=== PATIENT | female | born 1955 | race Caucasian/White ===

== ENCOUNTER 2017-06-16 03:57 | Inpatient (IN) ==
[2017-06-16] MEDS ORDERED: Ipratropium/Albuterol Neb 3 ML IH ONE (04:01)
[2017-06-16 04:22] LABS: Basophils % 0.2 %; Eosinophils # 0.2 K/mcL (0.0-0.6); Eosinophils % 1.5 %; Hematocrit 40.6 % (35.3-44.9); Hemoglobin 12.3 g/dL (11.5-15.4); Lymphocytes # 2.3 K/mcL (0.6-4.6); Lymphocytes % 17.8 %; Mean Corpuscular HGB Conc 30.3 g/dL (31.6-35.5); Mean Corpuscular Hemoglobin 32.4 pg (28.0-33.3); Mean Corpuscular Volume 106.8 fL (83.0-100.0); Mean Platelet Volume 10.2 fL (9.4-12.4); Monocytes # 1.1 K/mcL (0.0-1.3); Monocytes % 8.5 %; Neutrophils # 9.2 K/mcL (1.6-8.9); Nucleated Red Blood Cells 0.2 /100 WBC (0); Platelet Count 263 K/mcL (140-400); Red Cell Distribution Width 12.9 % (11.5-14.5)
--- NOTE | 2017-06-16 04:27 | Emergency Department Note ---
Disposition Clinical Impression: Respiratory distress, Endotracheally intubated, Acidosis Fever Qualifiers: Fever type: unspecified Qualified Code(s): R50.9 - Fever, unspecified Disposition: Admitted As Inpatient Condition: Fair [facility] Provider[facility] - Forms: ED Satisfaction Letter Time of Disposition: 06:09 General Adult HPI - General Chief complaint: ED Shortness of Breath/Dyspnea Stated complaint: Resp. Distress Time Seen by Provider: 06/16/17 04:00 Source: patient, EMS Mode of arrival: EMS Limitations: physical limitation Nursing Notes Reviewed: Yes Vital Signs Reviewed: Yes - History of Present Illness HPI Narrative: Patient is a 62-year-old female that presents to the emergency department for respiratory distress. Patient was transferred from the [facility] via EMS. Patient presented to the emergency department being bagged by EMS. They stated that she had an apneic spell in transit. [facility] reported that [facility] was having some [facility] distress and felt that she needed to be transferred here to the emergency department. Upon asking the patient if she wished to have a breathing tube placed if necessary she said yes. Upon being asked if she was to have CPR done if her heart were to stop she said yes. It was reported to us by the [facility] that the patient was full code per conversation with family member. - Related Data Allergies Allergy/AdvReac Type Severity Reaction Status Date / Time aspirin Allergy See Verified 06/16/17 04:24 Comments doxycycline Allergy Difficulty Verified 06/16/17 04:24 Breathing Erythromycin Base Allergy See Verified 06/16/17 04:24 Comments Iodinated Contrast- Oral and Allergy Rash Verified 06/16/17 04:24 IV Dye Latex, Natural Rubber Allergy Rash Verified 06/16/17 04:24 moxifloxacin Allergy Difficulty Verified 06/16/17 04:24 Breathing Pork/Porcine Containing Allergy Vomiting Verified 06/16/17 04:24 Products Sulfa (Sulfonamide Allergy Vomiting Verified 06/16/17 04:24 Antibiotics) All systems ED: reviewed and negative except as stated. Limitations: ROS unobtainable due to patients medical condition Respiratory: Reports: dyspnea Physical Exam - General Limitations: no limitations General appearance: alert, in distress - Head Head exam: atraumatic, normocephalic - Eye Eye exam: Present: normal appearance, EOMI - Neck Neck exam: Present: normal inspection, full ROM, trachea midline - Respiratory Respiratory exam: Present: respiratory distress, other (Decreased breath sounds bilaterally) - Cardiovascular Cardiovascular exam: Present: normal rhythm, tachycardia, normal heart sounds, + S1, +S2 - Abdominal Exam Abdominal exam: Present: soft, Non-Tender, normal bowel sounds - Neurological Exam Neurological exam: Present: alert, oriented X3 - Psychiatric Psychiatric exam: Present: normal affect, normal mood - Skin Skin exam: Present: warm, dry, intact Course Vital Signs Temperature 101.0 F H 06/16/17 04:01 Pulse Rate 101 06/16/17 04:01 Respiratory Rate 31 06/16/17 04:01 Blood Pressure 141/67 06/16/17 04:01 O2 Sat by Pulse Oximetry 92 06/16/17 04:01 Temperature 101.0 F H 06/16/17 04:01 Pulse Rate 103 06/16/17 06:05 Respiratory Rate 14 06/16/17 05:56 Blood Pressure 87/60 06/16/17 06:05 O2 Sat by Pulse Oximetry 100 06/16/17 06:05 Oxygen Delivery Oxygen Delivery Ventilator Procedures - Intubation sedative: Etomidate Mg Given: 20 paralytic: Rocuronium Mg Given: 100 Laryngoscope: Angelica ET Tube Size: 7.5 ET Tube Uncuffed: No Tube Secured Depth (cm): 21 Tube Secured Location: lips Tube Placement Confirmation: visualized tube passing through cords, equal breath sounds bilaterally, no breath sounds over epigastrium Patient Tolerated Procedure: well Intubation Complications: none Medical Decision Making - MDM Narrative Medical decision making narrative: Due to the patient presenting with respiratory distress we will obtain a CBC, BMP, troponin, EKG, chest x-ray, lactic acid, ABG, urinalysis and blood cultures to evaluate this patient. The patient was placed on BiPAP upon arrival here in the emergency department. Patient was also given a DuoNeb breathing treatment. Chest x-ray showed no acute process. Shunt elevated white count and a pH of 7.27 with a PCO2 of 93. The patient still had increased work of breathing and seemed to be tiring so the patient was intubated. Respiratory was at bedside, the patient was given fentanyl, etomidate and rocuronium. A 7-1/2 ET tube was passed without complication. The tube was inserted to 21 cm at the lip. There is equal bilateral breath sounds with no breath sounds heard over the epigastric region. There is positive colorimetric change. A post intubation x-ray was ordered. The patient was febrile and tachycardic. The patient will be started on antibiotics and will need to be admitted to the hospital for further evaluation and management. The patient was started on propofol the patient became hypotensive 80s over 50s. The patient was then switched to Precedex. I called and spoke with the hospitalist and they have accepted the patient to their service. The patient be admitted to the hospital at this time for further evaluation and management. The patient will need to be admitted to the ICU due to the patient being intubated and on a ventilator. The postintubation film showed good placement of the endotracheal tube at approximately 3.5 cm above the harjit. - Medical Records Medical records reviewed: Yes I reviewed the patient's medical records. - Lab Data Lab results reviewed: Yes I reviewed the patient's lab results. Result diagrams: 06/16/17 04:05 06/16/17 04:05 Lab Results 06/16/17 06/16/17 06/16/17 Range/Units 04:05 04:05 04:05 WBC 13.0 H (4.3-11.1) K/mcL RBC 3.80 L (3.82-4.97) M/mcL Hgb 12.3 (11.5-15.4) g/dL Hct 40.6 (35.3-44.9) % MCV 106.8 H (83.0-100.0) fL MCH 32.4 (28.0-33.3) pg MCHC 30.3 L (31.6-35.5) g/dL RDW 12.9 (11.5-14.5) % Plt Count 263 (140-400) K/mcL MPV 10.2 (9.4-12.4) fL Immature Gran % 1.0 (0-4) % Seg Neutrophils % 71.0 % Lymphocytes % 17.8 % Monocytes % 8.5 % Eosinophils % 1.5 % Basophils % 0.2 % Neutrophils # 9.2 H (1.6-8.9) K/mcL Lymphocytes # 2.3 (0.6-4.6) K/mcL Monocytes # 1.1 (0.0-1.3) K/mcL Eosinophils # 0.2 (0.0-0.6) K/mcL Basophils # 0.0 (0.0-0.2) K/mcL Nucleated RBCs/100 WBC 0.2 H (0) /100 WBC ABG pH (7.32-7.45) pH Units ABG pCO2 (35-45) mmHg ABG pO2 (85-104) mmHg ABG HCO3 (21-27) mEq/L ABG Total CO2 (20-26) mEq/L ABG O2 Saturation (95-98) % ABG Base Excess (-2 to 3) mEq/L Sodium 145 (136-145) mEq/L Potassium 4.3 (3.5-5.1) mEq/L Chloride 97 L (98-107) mEq/L Carbon Dioxide 45 H* (23-29) mEq/L BUN 6 L (8-23) mg/dL Creatinine 0.62 (0.60-1.20) mg/dL Est GFR ( Amer) > 60 (> 60) Est GFR (Non-Af Amer) > 60 (> 60) BUN/Creatinine Ratio 10 (6-26) Glucose 192 H (70-105) mg/dL Calculated Osmolality 303 H (280-300) Lactic Acid 0.8 (0.5-2.2) mmol/L Calcium 9.3 (8.6-10.3) mg/dL Troponin I (< 0.04) ng/mL B-Natriuretic Peptide (Less than 100) pg/mL Urine Color (Yellow) Urine Clarity (Clear) Urine pH (5.0-8.0) pH Units Ur Specific [place] (1.010-1.025) Urine Protein (Neg-Trace) mg/dL Urine Glucose (UA) (Normal) mg/dL Urine Ketones (Negative) mg/dL Urine Blood (Negative) Urine Nitrite (Negative) Urine Bilirubin (Negative) Urine Urobilinogen (Normal) mg/dL Ur Leukocyte Esterase (Negative) Urine Microscopic RBC (0-3) per hpf Urine Microscopic WBC (0-3) per hpf Ur Squamous Epith Cells (None-Few) per lpf Urine Bacteria (None-Few) per hpf Hyaline Casts (None-Few) per lpf Ur Culture Indicated? (NO) Person Notif of Crit 06/16/17 06/16/17 06/16/17 Range/Units 04:05 04:05 04:21 WBC (4.3-11.1) K/mcL RBC (3.82-4.97) M/mcL Hgb (11.5-15.4) g/dL Hct (35.3-44.9) % MCV (83.0-100.0) fL MCH (28.0-33.3) pg MCHC (31.6-35.5) g/dL RDW (11.5-14.5) % Plt Count (140-400) K/mcL MPV (9.4-12.4) fL Immature Gran % (0-4) % Seg Neutrophils % % Lymphocytes % % Monocytes % % Eosinophils % % Basophils % % Neutrophils # (1.6-8.9) K/mcL Lymphocytes # (0.6-4.6) K/mcL Monocytes # (0.0-1.3) K/mcL Eosinophils # (0.0-0.6) K/mcL Basophils # (0.0-0.2) K/mcL Nucleated RBCs/100 WBC (0) /100 WBC ABG pH 7.27 L (7.32-7.45) pH Units ABG pCO2 93 H* (35-45) mmHg ABG pO2 111 H (85-104) mmHg ABG HCO3 43 H (21-27) mEq/L ABG Total CO2 46 H (20-26) mEq/L ABG O2 Saturation 97 (95-98) % ABG Base Excess 12 H (-2 to 3) mEq/L Sodium (136-145) mEq/L Potassium (3.5-5.1) mEq/L Chloride (98-107) mEq/L Carbon Dioxide (23-29) mEq/L BUN (8-23) mg/dL Creatinine (0.60-1.20) mg/dL Est GFR ( Amer) (> 60) Est GFR (Non-Af Amer) (> 60) BUN/Creatinine Ratio (6-26) Glucose (70-105) mg/dL Calculated Osmolality (280-300) Lactic Acid (0.5-2.2) mmol/L Calcium (8.6-10.3) mg/dL Troponin I 0.03 (< 0.04) ng/mL B-Natriuretic Peptide 298 H (Less than 100) pg/mL Urine Color (Yellow) Urine Clarity (Clear) Urine pH (5.0-8.0) pH Units Ur Specific [place] (1.010-1.025) Urine Protein (Neg-Trace) mg/dL Urine Glucose (UA) (Normal) mg/dL Urine Ketones (Negative) mg/dL Urine Blood (Negative) Urine Nitrite (Negative) Urine Bilirubin (Negative) Urine Urobilinogen (Normal) mg/dL Ur Leukocyte Esterase (Negative) Urine Microscopic RBC (0-3) per hpf Urine Microscopic WBC (0-3) per hpf Ur Squamous Epith Cells (None-Few) per lpf Urine Bacteria (None-Few) per hpf Hyaline Casts (None-Few) per lpf Ur Culture Indicated? (NO) Person Notif Layne ron 06/16/17 Range/Units 04:39 WBC (4.3-11.1) K/mcL RBC (3.82-4.97) M/mcL Hgb (11.5-15.4) g/dL Hct (35.3-44.9) % MCV (83.0-100.0) fL MCH (28.0-33.3) pg MCHC (31.6-35.5) g/dL RDW (11.5-14.5) % Plt Count (140-400) K/mcL MPV (9.4-12.4) fL Immature Gran % (0-4) % Seg Neutrophils % % Lymphocytes % % Monocytes % % Eosinophils % % Basophils % % Neutrophils # (1.6-8.9) K/mcL Lymphocytes # (0.6-4.6) K/mcL Monocytes # (0.0-1.3) K/mcL Eosinophils # (0.0-0.6) K/mcL Basophils # (0.0-0.2) K/mcL Nucleated RBCs/100 WBC (0) /100 WBC ABG pH (7.32-7.45) pH Units ABG pCO2 (35-45) mmHg ABG pO2 (85-104) mmHg ABG HCO3 (21-27) mEq/L ABG Total CO2 (20-26) mEq/L ABG O2 Saturation (95-98) % ABG Base Excess (-2 to 3) mEq/L Sodium (136-145) mEq/L Potassium (3.5-5.1) mEq/L Chloride (98-107) mEq/L Carbon Dioxide (23-29) mEq/L BUN (8-23) mg/dL Creatinine (0.60-1.20) mg/dL Est GFR ( Amer) (> 60) Est GFR (Non-Af Amer) (> 60) BUN/Creatinine Ratio (6-26) Glucose (70-105) mg/dL Calculated Osmolality (280-300) Lactic Acid (0.5-2.2) mmol/L Calcium (8.6-10.3) mg/dL Troponin I (< 0.04) ng/mL B-Natriuretic Peptide (Less than 100) pg/mL Urine Color Yellow (Yellow) Urine Clarity Clear (Clear) Urine pH 6.0 (5.0-8.0) pH Units Ur Specific [place] 1.019 (1.010-1.025) Urine Protein 30 H (Neg-Trace) mg/dL Urine Glucose (UA) Normal (Normal) mg/dL Urine Ketones Negative (Negative) mg/dL Urine Blood Negative (Negative) Urine Nitrite Negative (Negative) Urine Bilirubin Negative (Negative) Urine Urobilinogen Normal (Normal) mg/dL Ur Leukocyte Esterase Negative (Negative) Urine Microscopic RBC 3-5 H (0-3) per hpf Urine Microscopic WBC 0-3 (0-3) per hpf Ur Squamous Epith Cells Many H (None-Few) per lpf Urine Bacteria None Seen (None-Few) per hpf Hyaline Casts Few (None-Few) per lpf Ur Culture Indicated? NO (NO) Person Notif of Crit - Radiology Data Radiology results reviewed: Yes I reviewed the patient's radiology results. Chest X-Ray 06/16/17 05:33 IMPRESSION: Endotracheal tube in appropriate position approximately 3.5 cm above the harjit. No acute process in the chest. D/ / Bessy Lindsay MD / Bessy Lindsay MD Interpreting Provider: Bessy Lindsay MD - EKG Data EKG #1 EKG attestation: Yes I reviewed and interpreted this EKG. EKG results narrative: EKG shows sinus tachycardia at a rate of 102 bpm, OH interval of 173, QRS duration of 82, QTC of 395 with a normal axis. This is compared to previous EKG on 3/5/15 which showed a sinus rhythm at a rate of 77 bpm.
[2017-06-16 04:28] LABS: ABG Base Excess 12 mEq/L (-2 to 3); ABG HCO3 43 mEq/L (21-27); ABG Oxygen Saturation 97 % (95-98); ABG PCO2 93 mmHg (35-45); ABG PH 7.27 pH Units (7.32-7.45); ABG PO2 111 mmHg (85-104); ABG TCO2 46 mEq/L (20-26)
[2017-06-16 04:45] LABS: BUN/Creatinine Ratio 10 (6-26); Blood Urea Nitrogen 6 mg/dL (8-23); Calcium 9.3 mg/dL (8.6-10.3); Carbon Dioxide 45 mEq/L (23-29); Chloride 97 mEq/L (98-107); Glucose 192 mg/dL (70-105); Osmolality,Calculated 303 (280-300); Potassium 4.3 mEq/L (3.5-5.1); Sodium 145 mEq/L (136-145); eGFR For African Americans > 60 (> 60); eGFR For Non-African Americans > 60 (> 60)
[2017-06-16 05:03] LABS: Bilirubin,Urine Negative (Negative); Blood,Urine Negative (Negative); Clarity,Urine Clear (Clear); Color,Urine Yellow (Yellow); Glucose,Urine (UA) Normal (Normal); Ketones,Urine Negative (Negative); Leukocyte Esterase,Urine Negative (Negative); Nitrite,Urine Negative (Negative); Protein,Urine 30 mg/dL (Neg-Trace); Specific Gravity,Urine 1.019 (1.010-1.025); Urobilinogen,Urine Normal (Normal)
[2017-06-16 05:05] LABS: Bacteria,Urine None Seen per hpf (None-Few); Hyaline Casts,Urine Few per lpf (None-Few); Squamous Epithelial Cell,Urine Many per lpf (None-Few); WBC,Urine 0-3 per hpf (0-3)
[2017-06-16] MEDS ORDERED: *HR* FentaNYL (PF) 100 MCG/2 ML VIAL ONE (05:26)
[2017-06-16] MEDS ORDERED: 0.9 % Sodium Chloride 1,000 ML ONE (05:27)
[2017-06-16] MEDS ORDERED: Propofol 500 MG/50 ML INFUS..BTL ONE (05:27)
[2017-06-16] MEDS ORDERED: 0.9 % Sodium Chloride 1,000 ML IVC SCH (05:30)
[2017-06-16] MEDS ORDERED: *HR* Etomidate 20 MG/10 ML AMPUL IVP ONE ×2 (05:35→08:15)
[2017-06-16] MEDS ORDERED: *HR* FentaNYL (PF) 100 MCG/2 ML VIAL IVP ONE (05:35)
[2017-06-16] MEDS ORDERED: *HR* Rocuronium Bromide 50 MG/5 ML VIAL IVP ONE (05:35)
[2017-06-16] MEDS ORDERED: Piperacillin/Tazobactam 3.375 GM in Water for inj. (sterile) 20 ML IVP ONE (05:37)
[2017-06-16] MEDS ORDERED: Vancomycin 1,000 MG in D5% in Water 250 ML IVPB ONE (05:37)
--- NOTE | 2017-06-16 05:45 | Emergency Department Note ---
START Narrative - START START: I examined this patient and my medical decision-making was reviewed with the Resident Physician. I agree with the documented findings, disposition and treatment plan as described except to the extent set forth below. Patient to the ED with difficulty breathing. She is a transfer from the [facility]dc at the [place]. He states she was so difficult breathing and she was confused. They checked an ABG that showed acidosis and hypercapnia so she was transferred here. On arrival she is in respiratory distress. Accessory muscle use. Oxygen saturation the upper 70s to low 80s. She was placed on a BiPAP. She received 3 DuoNeb's. She received Solu-Medrol prior to transfer at the [facility]. Lung sounds are significantly diminished. Plan. The patient did not improve on BiPAP. She still breathing 30 times a minute with accessory muscle use. She is beginning to tire. Patient was agreeable to intubation. He did have a DNR comfort care chart. When patient was asked about this the patient states that she would want CPR and that she was okay with an intubation. She was oriented 3. She was competent. She understood what this meant. The patient was intubated for respiratory failure did not improve with BiPAP. She has a clear chest x-ray, but she does have a fever. Flu was negative. She started on broad-spectrum antibiotic. 40 minutes of critical care exclusive of separately billable procedures.
[2017-06-16] MEDS ORDERED: Naloxone 0.4 MG/ML INJ IVP PRN (05:50)
[2017-06-16] MEDS ORDERED: Lacri-Lube 3.5 GM TUBE BOTH EYES PRN (05:53)
[2017-06-16] MEDS ORDERED: Ringers Solution, Lactated 1,000 ML IVC SCH (06:00)
[2017-06-16] MEDS: MethylPREDNISolone 40 MG/ML VIAL IVP SCH ×3 (06:00→18:12)
[2017-06-16] MEDS ORDERED: Dexmedetomidine HCl 400 MCG/100 ML MLS IVC ONE (06:04)
[2017-06-16] MEDS: Dexmedetomidine HCl 400 MCG/100 ML MLS IVC SCH (06:07)
[2017-06-16] MEDS ORDERED: Dexmedetomidine HCl 400 MCG/100 ML MLS IVC SCH (06:15)
--- NOTE | 2017-06-16 06:15 | Internal Med History&Physical ---
Date of Encounter: 06/16/17 Time of Encounter: 06:11 Assessment and Plan (1) Acute respiratory failure with hypercapnia Current visit: Yes Status: Acute suspect COPD flare as etiology check RVP CXR reviewed with no infiltrates to suggest PNA Now intubated on vent, repeat ABG, post intubated CXR for ETT placement patient is critically ill [facility] (2) COPD exacerbation Current visit: Yes Status: Acute duonebs iv steroids (3) HTN (hypertension) Current visit: Yes Status: Acute normotensive, hold BP med Qualifiers: Hypertension type: essential hypertension Qualified Code(s): I10 - Essential (primary) hypertension (4) CHF (congestive heart failure) Current visit: Yes Status: Acute LVEF reported 30 % watch IVF to avoid volume overload Qualifiers: Congestive heart failure chronicity: chronic Qualified Code(s): I50.9 - Heart failure, unspecified Internal Medicine - H&P: HPI Chief complaint: SOB History of present illness: Patient was intubated and sedated in the ED. Collateral hx from ED staff indicate: Ms. Smith is a 62 year old female who presents from [facility] with SOB. Transferred to [facility] for acute respiratory distress 2/2 COPD exacerbation. Mental status was considered to be alert and she indicated to the ED staff that she would want intubation in lieu of her progressive respiratory compromise. Her [facility] paperwork initially indicated DNRCC but she changed her code status to full code under this morning's circumstance. Initial labs suggest chronic hypercapnia with metabolic compensation She was intubated for impending respiratory failure XR/XR chest 1V portable IMPRESSION: Stable chest x-ray. No acute disease. Past Med Surg Social Fam HX - Past Medical History Medical history: CHF, COPD, GERD, hyperlipidemia, hypertension Psychiatric history: depression - Past Surgical History Surgical History: no surgical history (unable to obtain given sedated/intubated state) - Social History Smoking Status: Unknown if ever smoked Smokeless Tobacco Status: No Alcohol use: none Drug use: none - Additional Family History Additional family history: unable to obtain given sedated/intubated state Internal Medicine - H&P: Meds 3 Allergy/AdvReac Type Severity Reaction Status Date / Time aspirin Allergy See Verified 06/16/17 04:24 Comments doxycycline Allergy Difficulty Verified 06/16/17 04:24 Breathing Erythromycin Base Allergy See Verified 06/16/17 04:24 Comments Iodinated Contrast- Oral and Allergy Rash Verified 06/16/17 04:24 IV Dye Latex, Natural Rubber Allergy Rash Verified 06/16/17 04:24 moxifloxacin Allergy Difficulty Verified 06/16/17 04:24 Breathing Pork/Porcine Containing Allergy Vomiting Verified 06/16/17 04:24 Products Sulfa (Sulfonamide Allergy Vomiting Verified 06/16/17 04:24 Antibiotics) All Systems PM: A 10-system review of systems was performed and is negative for pertinent findings except as documented above in the HPI. Review of systems: Unable to perform given intubated, sedated state - Constitutional Vitals: Temp Pulse Resp BP Pulse Ox 101.0 F H 105 14 110/66 100 06/16/17 04:01 06/16/17 05:56 06/16/17 05:56 06/16/17 05:56 06/16/17 05:56 Exam: General - Intubated, sedated state Psych - Intubated, sedated state Eyes - [place]. Eye lids intact. No scleral icterus Neuro - Intubated, sedated Heart - Sinus. RRR. S1 and S2 present. No added HS/murmurs appreciated. No elevated JVD appreciated. Lung - Adequate air entry b/l, No crackles/wheezes appreciated GI - Soft, non-tender. No hepatosplenomegaly/ascites. BS+ - Roche in-situ Skin - Intact. No rash/petechiae/ecchymosis. Trace b/l LE edema Internal Med - H&P Results - Labs CBC & Chem 7: 06/16/17 04:05 06/16/17 04:05 Labs: Short CBC 06/16/17 Range/Units 04:05 WBC 13.0 H (4.3-11.1) K/mcL Hgb 12.3 (11.5-15.4) g/dL Hct 40.6 (35.3-44.9) % Plt Count 263 (140-400) K/mcL Neutrophils # 9.2 H (1.6-8.9) K/mcL BMP 06/16/17 04:05 Sodium 145 Potassium 4.3 Chloride 97 L Carbon Dioxide 45 H* BUN 6 L Creatinine 0.62 Glucose 192 H Calcium 9.3 Cardiac Enzymes 06/16/17 Range/Units 04:05 Troponin I 0.03 (< 0.04) ng/mL Urine 06/16/17 Range/Units 04:39 Urine Color Yellow (Yellow) Urine Clarity Clear (Clear) Urine pH 6.0 (5.0-8.0) pH Units Ur Specific [place] 1.019 (1.010-1.025) Urine Protein 30 H (Neg-Trace) mg/dL Urine Glucose (UA) Normal (Normal) mg/dL - ABG Interpretation ABG results: 06/16/17 04:21 ABG pH 7.27 L ABG pCO2 93 H* ABG pO2 111 H ABG HCO3 43 H ABG Total CO2 46 H ABG O2 Saturation 97 ABG Base Excess 12 H - Impressions ITS Impressions Chest X-Ray 06/16/17 04:00 IMPRESSION: Stable chest x-ray. No acute disease. D/ / Saúl Hester MD / Saúl Hester MD Interpreting Provider: Saúl Hester MD Chest X-Ray 06/16/17 05:33 IMPRESSION: Endotracheal tube in appropriate position approximately 3.5 cm above the harjit. No acute process in the chest. D/ / Bessy Lindsay MD / Bessy Lindsay MD Interpreting Provider: Bessy Lindsay MD
--- NOTE | 2017-06-16 06:56 | Pulmonology Consult Note ---
<Madhu Conner W - Last Filed: 06/16/17 11:26> Date of Encounter: 06/16/17 Medications and Allergies 3 Allergy/AdvReac Type Severity Reaction Status Date / Time aspirin Allergy See Verified 06/16/17 04:24 Comments doxycycline Allergy Difficulty Verified 06/16/17 04:24 Breathing Erythromycin Base Allergy See Verified 06/16/17 04:24 Comments Iodinated Contrast- Oral and Allergy Rash Verified 06/16/17 04:24 IV Dye Latex, Natural Rubber Allergy Rash Verified 06/16/17 04:24 moxifloxacin Allergy Difficulty Verified 06/16/17 04:24 Breathing Pork/Porcine Containing Allergy Vomiting Verified 06/16/17 04:24 Products Sulfa (Sulfonamide Allergy Vomiting Verified 06/16/17 04:24 Antibiotics) All Systems: A 10-system review of systems was performed and is negative for pertinent findings except as documented above in the HPI. Physical Examination Vital Signs: Vital Signs, Last 4 Hours Temp Pulse Resp BP Pulse Ox 06/16/17 09:41 14 95/69 98 06/16/17 09:00 73 14 78/62 06/16/17 08:02 14 100/60 97 06/16/17 07:05 80 06/16/17 07:00 98 F 80 14 127/69 98 06/16/17 06:47 14 100 06/16/17 06:39 77 14 111/63 100 Ventilator Settings Ventilator Settings: Ventilator Settings, Last 8 Hours Ventilator Mode A/C Ventilator Mode A/C Ventilator Mode A/C Ventilator Mode A/C Ventilator Tidal Volume 400 Setting Ventilator Tidal Volume 400 Setting Ventilator Tidal Volume 400 Setting Ventilator Tidal Volume 400 Setting Ventilator Tidal Volume 400 Setting Ventilator Respiratory Rate 14 Setting Ventilator Respiratory Rate 14 Setting Ventilator Respiratory Rate 14 Setting Ventilator Respiratory Rate 14 Setting Ventilator Respiratory Rate 14 Setting Actual Respiratory Rate 14 Actual Respiratory Rate 14 Actual Respiratory Rate 14 Actual Respiratory Rate 14 Actual Respiratory Rate 14 Positive End Expiratory 5 Pressure Positive End Expiratory 5 Pressure Positive End Expiratory 5 Pressure Positive End Expiratory 5 Pressure Positive End Expiratory 5 Pressure Peak Inspiratory Airway 41 Pressure Peak Inspiratory Airway 44 Pressure Peak Inspiratory Airway 37 Pressure Peak Inspiratory Airway 38 Pressure Peak Inspiratory Airway 37 Pressure Results - Laboratory Findings CBC and BMP: 06/16/17 04:05 06/16/17 04:05 ABG ABG pH 7.37 pH Units (7.32-7.45) 06/16/17 07:42 ABG pCO2 68 mmHg (35-45) H D 06/16/17 07:42 ABG pO2 204 mmHg (85-104) H D 06/16/17 07:42 ABG O2 Saturation 100 % (95-98) H 06/16/17 07:42 Abnormal lab findings: Abnormal lab results WBC 13.0 K/mcL (4.3-11.1) H 06/16/17 04:05 RBC 3.80 M/mcL (3.82-4.97) L 06/16/17 04:05 MCV 106.8 fL (83.0-100.0) H 06/16/17 04:05 MCHC 30.3 g/dL (31.6-35.5) L 06/16/17 04:05 Neutrophils # 9.2 K/mcL (1.6-8.9) H 06/16/17 04:05 Nucleated RBCs/100 WBC 0.2 /100 WBC (0) H 06/16/17 04:05 ABG pCO2 68 mmHg (35-45) H D 06/16/17 07:42 ABG pO2 204 mmHg (85-104) H D 06/16/17 07:42 ABG HCO3 39 mEq/L (21-27) H 06/16/17 07:42 ABG Total CO2 42 mEq/L (20-26) H 06/16/17 07:42 ABG O2 Saturation 100 % (95-98) H 06/16/17 07:42 ABG Base Excess 12 mEq/L (-2 to 3) H 06/16/17 07:42 Chloride 97 mEq/L (98-107) L 06/16/17 04:05 Carbon Dioxide 45 mEq/L (23-29) H* 06/16/17 04:05 BUN 6 mg/dL (8-23) L 06/16/17 04:05 Glucose 192 mg/dL (70-105) H 06/16/17 04:05 POC Glucose 208 (58-89) H 06/16/17 07:05 Calculated Osmolality 303 (280-300) H 06/16/17 04:05 B-Natriuretic Peptide 298 pg/mL (Less than 100) H 06/16/17 04:05 Urine Protein 30 mg/dL (Neg-Trace) H 06/16/17 04:39 Urine Microscopic RBC 3-5 per hpf (0-3) H 06/16/17 04:39 Ur Squamous Epith Cells Many per lpf (None-Few) H 06/16/17 04:39 RSV (PCR) DETECTED (Not Detect) A 06/16/17 08:15 - Clinical Findings Intake & Output: Intake & Output 06/15/17 06/16/17 06/16/17 23:59 07:59 15:59 Weight 61.3 kg Consult Discharge Plan - Plan [facility]errals: [facility] [Primary Care Provider] - - Attending Attestation I examined this patient and my medical decision-making was reviewed with the Resident Physician. I agree with the documented findings, disposition and treatment plan as described except to the extent set forth below. We independently had [id number] contact with the patient I spent 35min of Critical Care time with this patient. It involved decision making of high complexity to assess, manipulate, and support vital organ system failure and/or to prevent further life threatening deterioration of the patient' s condition. The time involved in the performance of separately reportable procedures was not counted toward critical care time. Patient seen and examined at bedside Labs, radiology, chart personally reviewed. Management was reviewed during multidisciplinary critical care rounds. 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 Lactate within normal limits. Has a history of heart failure unclear if this is with preserved her reduced ejection fraction but we closely follow amount of crystalloid infusion given. Her BNP was modestly elevated on admission FEN-GI: Nothing by mouth for now on GI prophylaxis given Renal: Urine output monitored and is acceptable no evidence of acute kidney injury ID: She is on treatment for community acquired pneumonia respiratory infection panel positive for RSV planned to de-escalate antimicrobials and 24 hours if no evidence of coinfection Heme/Onc: DVT prophylaxis given Endo: Glucose Monitored Integ/MSK: Skin Care per routine ICU Nursing Protocol to prevent ulcers. Lines: All lines examined without evidence of infection : Dispo: Remain in ICU for ventilator needs CODE: Full code. Patient had DNR CC from [facility] on admission which was rescinded the time of respiratory decompensation will likely need palliative care consultation for ongoing close of care discussion especially once patient liberated from the Vent <Franki Damian - Last Filed: 06/16/17 12:10> Date of Encounter: 06/16/17 Time of Encounter: 06:56 Assessment and Plan (1) Acute respiratory failure with hypercapnia Current Visit: Yes Status: Acute Patient was admitted from the [facility] due to shortness of breath ABG this morning demonstrates pH 7.37, PCO2 68, PO2 204, HCO3 39 Sedation regimen: Only receiving fentanyl bolused as needed for comfort Patient was alert and able to follow some commands this morning Likely due to COPD exacerbation with suspected pneumonia RSV positive on respiratory infection panel Attempt spontaneous retrial this afternoon to CPAP Continue IV antibiotics, steroids, bronchodilators Patient remains high-risk and we will close monitoring throughout the day. CODE STATUS is full code per patient's wishes upon arrival but was previously DNR CC at the [facility]. (2) COPD exacerbation Current Visit: Yes Status: Acute Chronic severe COPD with known FEV1 roughly 20% Continue duo nebs with IV steroids and start IV antibiotics today See above (3) PNA (pneumonia) Current Visit: Yes Status: Suspected Chronic changes versus new opacity seen in left lower lobe on chest x-ray Mild bump in leukocytosis of 13.0 Afebrile Sent strep and Legionella antigen Blood cultures pending Respiratory infection panel showing RSV positive Plan: Solu-Medrol 40 mg every 6 Dounebs q4 Start azithromycin and ceftriaxone (day 1) Qualifiers: Pneumonia type: due to unspecified organism Laterality: left Lung location: lower lobe of lung Qualified Code(s): J18.1 - Lobar pneumonia, unspecified organism (4) Chronic systolic (congestive) heart failure Current Visit: Yes Status: Acute Left heart cath in 2013 with an EF of 30% No evidence of acute CHF. No lower extremity edema or vascular congestion seen on CXR. Patient takes Lasix 20 mg daily with ARB and beta iron at the halfway. We will hold these due to hypotension. (5) HLD (hyperlipidemia) Current Visit: Yes Status: Chronic History of atorvastatin 40 mg daily. Will hold at this time Qualifiers: Hyperlipidemia type: unspecified Qualified Code(s): E78.5 - Hyperlipidemia , unspecified (6) Anxiety Current Visit: Yes Status: Chronic History of taking hydroxyzine. We will hold this for now (7) Mood disorder Current Visit: Yes Status: Chronic History of taking lamotrigine and mirtazapine. We will hold these medication at this time (8) GERD (gastroesophageal reflux disease) Current Visit: Yes Status: Chronic PPI therapy Qualifiers: Esophagitis presence: without esophagitis Qualified Code(s): K21.9 - Gastro -esophageal reflux disease without esophagitis (9) HTN (hypertension) Current Visit: Yes Status: Chronic Qualifiers: Hypertension type: essential hypertension Qualified Code(s): I10 - Essential (primary) hypertension (10) DVT prophylaxis Current Visit: Yes Status: Acute Lovenox 40 mg subcutaneous History of Present Illness History of present illness: Miss Morrow is a very pleasant 62-year-old female with a past medical history of anemia, chronic systolic heart failure, anxiety, low back pain, GERD, depression, mood disorder, hypertension, hyperlipidemia and severe COPD who presents to the [facility] chief complaint short of breath. Patient is a resident at the [facility]. Around the ED, initial workup demonstrates leukocytosis of 13, normal kidney function, mildly elevated BNP of 298, negative urine and initial ABG demonstrating pH 7.27, PCO2 93, PO2 111 and HCO3 43. CXR demonstrates chronic lung changes in the left lower lobe versus infectious process. Blood cultures were sent and flu swab was negative. Patient was subsequently intubated and started on ventilator support. She was given 1 dose of vancomycin and Zosyn in the ER. She was admitted to the intensive care unit for acute respiratory failure secondary to COPD exacerbation and suspected pneumonia and thus, pulmonary/critical care team was consulted. On evaluation, patient is intubated and responds to stimulation. She is able to follow simple commands. Repeat ABG with pH of 7.37, PCO2 68, PO2 204 and HCO3 39. Ventilator settings are at 14, 400, 60 and 5. Patient appears comfortable on Precedex and was bolused fentanyl as needed. The admitting team had started bronchodilators and steroids. Additional coverage were added with ceftriaxone and azithromycin as well as a respiratory infection panel that was positive for RSV. Patient is than progressively hypotensive this morning has been fluid responsive thus far. Two 500 mL of normal saline bolus and MAP has been above 60 consistently. We will continue to monitor patient closely got the day and offer further interventions as needed. Past Med Surg Social Fam HX - Past Medical History Medical history: CHF, COPD, GERD, hyperlipidemia, hypertension Psychiatric history: depression - Past Surgical History Surgical History: no surgical history (unable to obtain given sedated/intubated state) - Social History Smoking Status: Unknown if ever smoked Smokeless Tobacco Status: No Alcohol use: none Drug use: none ROS unobtainable: due to endotracheal tube All Systems: A 10-system review of systems was performed and is negative for pertinent findings except as documented above in the HPI. Physical Examination Vital Signs: Vital Signs, Last 4 Hours Pulse Resp BP Pulse Ox 06/16/17 06:39 77 14 111/63 100 General appearance: no acute distress Eyes: nonicteric ENT: oropharynx moist (ET tube present) Effort: normal Inspection: normal Auscultation: left: rhonchi, bilateral: wheezes Cardiovascular: regular rate and rhythm Gastrointestinal: normoactive bowel sounds, non-distended Integumentary: normal Extremities: no cyanosis Musculoskeletal: no deformities unable to assess due to mental status Results - Laboratory Findings CBC and BMP: 06/16/17 04:05 06/16/17 04:05 ABG ABG pH 7.27 pH Units (7.32-7.45) L 06/16/17 04:21 ABG pCO2 93 mmHg (35-45) H* 06/16/17 04:21 ABG pO2 111 mmHg (85-104) H 06/16/17 04:21 ABG O2 Saturation 97 % (95-98) 06/16/17 04:21 Abnormal lab findings: Abnormal lab results WBC 13.0 K/mcL (4.3-11.1) H 06/16/17 04:05 RBC 3.80 M/mcL (3.82-4.97) L 06/16/17 04:05 MCV 106.8 fL (83.0-100.0) H 06/16/17 04:05 MCHC 30.3 g/dL (31.6-35.5) L 06/16/17 04:05 Neutrophils # 9.2 K/mcL (1.6-8.9) H 06/16/17 04:05 Nucleated RBCs/100 WBC 0.2 /100 WBC (0) H 06/16/17 04:05 ABG pH 7.27 pH Units (7.32-7.45) L 06/16/17 04:21 ABG pCO2 93 mmHg (35-45) H* 06/16/17 04:21 ABG pO2 111 mmHg (85-104) H 06/16/17 04:21 ABG HCO3 43 mEq/L (21-27) H 06/16/17 04:21 ABG Total CO2 46 mEq/L (20-26) H 06/16/17 04:21 ABG Base Excess 12 mEq/L (-2 to 3) H 06/16/17 04:21 Chloride 97 mEq/L (98-107) L 06/16/17 04:05 Carbon Dioxide 45 mEq/L (23-29) H* 06/16/17 04:05 BUN 6 mg/dL (8-23) L 06/16/17 04:05 Glucose 192 mg/dL (70-105) H 06/16/17 04:05 Calculated Osmolality 303 (280-300) H 06/16/17 04:05 B-Natriuretic Peptide 298 pg/mL (Less than 100) H 06/16/17 04:05 Urine Protein 30 mg/dL (Neg-Trace) H 06/16/17 04:39 Urine Microscopic RBC 3-5 per hpf (0-3) H 06/16/17 04:39 Ur Squamous Epith Cells Many per lpf (None-Few) H 06/16/17 04:39
[2017-06-16 07:46] LABS: ABG Base Excess 12 mEq/L (-2 to 3); ABG HCO3 39 mEq/L (21-27); ABG Oxygen Saturation 100 % (95-98); ABG PCO2 68 mmHg (35-45); ABG PH 7.37 pH Units (7.32-7.45); ABG PO2 204 mmHg (85-104); ABG TCO2 42 mEq/L (20-26); Blood Gas Modality ASSIST CONTROL; Blood Gas PEEP 5 cm H2O; Blood Gas Respiration Rate 14; Blood Gas VT 400 cc
[2017-06-16] MEDS ORDERED: *HR* Rocuronium Bromide 100 MG/10 ML VIAL IVC ONE (08:15)
[2017-06-16] MEDS ORDERED: 0.9 % Sodium Chloride 500 ML ONE (08:49)
[2017-06-16] MEDS ORDERED: 0.9 % Sodium Chloride 500 ML IVC ONE ×3 (08:50→16:53)
[2017-06-16 09:18] LABS: Adenovirus Not Detected (Not Detect); Bordetella Pertussis Not Detected (Not Detect); Chlamydophila pneumoniae Not Detected (Not Detect); Coronavirus 229E Not Detected (Not Detect); Coronavirus HKU1 Not Detected (Not Detect); Coronavirus NL63 Not Detected (Not Detect); Coronavirus OC43 Not Detected (Not Detect); Human Metapneumovirus Not Detected (Not Detect); Human Rhinovirus/Enterovirus Not Detected (Not Detect); Influenza A Subtype 2009 H1 Not Detected (Not Detect); Influenza A Untypeable Not Detected (Not Detect); Influenza B Not Detected (Not Detect); Mycoplasma pneumoniae Not Detected (Not Detect); Parainfluenza Virus 1 Not Detected (Not Detect); Parainfluenza Virus 2 Not Detected (Not Detect); Parainfluenza Virus 3 Not Detected (Not Detect); Parainfluenza Virus 4 Not Detected (Not Detect)
[2017-06-16 09:19] LABS: Respiratory Syncytial Virus ***DETECTED*** (Not Detect)
[2017-06-16] MEDS: Ipratropium/Albuterol Neb 3 ML IH SCH ×3 (09:40→22:57)
[2017-06-16] MEDS: FentaNYL (PF) 1,000 MCG in 0.9 % Sodium Chloride 80 ML IVC SCH (09:58)
[2017-06-16] MEDS: Chlorhexidine Rinse 15 ML MOUTHWASH MM SCH ×2 (11:05→21:14)
[2017-06-16] MEDS: *HR* Enoxaparin 40 MG/0.4 ML SYRINGE SQ SCH (11:06)
[2017-06-16] MEDS: Pantoprazole 40 MG VIAL IVP SCH (11:07)
[2017-06-16] MEDS: Lacri-Lube 3.5 GM TUBE BOTH EYES SCH ×4 (11:08→21:16)
[2017-06-16] MEDS: Docusate Oral Soln 100 MG/10 ML UDC PO SCH ×2 (11:08→21:14)
[2017-06-16] MEDS: Azithromycin 500 MG in D5% in Water 250 ML IVPB SCH (12:55)
[2017-06-16] MEDS: cefTRIAXone 2,000 MG in Water for inj. (sterile) 20 ML 20 ML IVP SCH (12:56)
[2017-06-17] MEDS: Lacri-Lube 3.5 GM TUBE BOTH EYES SCH ×6 (02:38→19:18)
[2017-06-17] MEDS: MethylPREDNISolone 40 MG/ML VIAL IVP SCH ×4 (02:39→19:13)
[2017-06-17] MEDS: Dexmedetomidine HCl 400 MCG/100 ML MLS IVC SCH (03:48)
[2017-06-17] MEDS: Ipratropium/Albuterol Neb 3 ML IH SCH (04:09)
[2017-06-17 04:13] LABS: BUN/Creatinine Ratio 22 (6-26); Blood Urea Nitrogen 12 mg/dL (8-23); Calcium 7.9 mg/dL (8.6-10.3); Carbon Dioxide 31 mEq/L (23-29); Chloride 102 mEq/L (98-107); Glucose 151 mg/dL (70-105); Magnesium 1.1 mg/dL (1.6-2.6); Osmolality,Calculated 295 (280-300); Potassium 4.4 mEq/L (3.5-5.1); Sodium 141 mEq/L (136-145); eGFR For African Americans > 60 (> 60); eGFR For Non-African Americans > 60 (> 60)
[2017-06-17 04:16] LABS: Basophils % 0.2 %; Eosinophils % 0.2 %; Hematocrit 31.5 % (35.3-44.9); Immature Granulocytes % 0.5 % (0-4); Lymphocytes # 0.7 K/mcL (0.6-4.6); Lymphocytes % 6.9 %; Mean Corpuscular HGB Conc 30.5 g/dL (31.6-35.5); Mean Corpuscular Hemoglobin 32.1 pg (28.0-33.3); Mean Corpuscular Volume 105.4 fL (83.0-100.0); Mean Platelet Volume 10.3 fL (9.4-12.4); Monocytes # 0.8 K/mcL (0.0-1.3); Monocytes % 7.7 %; Neutrophils # 8.8 K/mcL (1.6-8.9); Platelet Count 171 K/mcL (140-400); Red Blood Count 2.99 M/mcL (3.82-4.97); Red Cell Distribution Width 12.9 % (11.5-14.5); Segmented Neutrophils % 84.5 %
[2017-06-17 04:21] LABS: Hemoglobin 9.6 g/dL (11.5-15.4)
[2017-06-17] MEDS: *HR* Enoxaparin 40 MG/0.4 ML SYRINGE SQ SCH (06:27)
[2017-06-17] MEDS: Pantoprazole 40 MG VIAL IVP SCH (06:27)
[2017-06-17 06:31] LABS: ABG Base Excess 9 mEq/L (-2 to 3); ABG HCO3 38 mEq/L (21-27); ABG Oxygen Saturation 93 % (95-98); ABG PCO2 82 mmHg (35-45); ABG PH 7.28 pH Units (7.32-7.45); ABG PO2 80 mmHg (85-104); ABG TCO2 41 mEq/L (20-26); Blood Gas Modality ASSIST CONTROL; Blood Gas PEEP 5 cm H2O; Blood Gas Respiration Rate 14; Blood Gas VT 400 cc
[2017-06-17] MEDS ORDERED: Calcium Gluconate 2,000 MG in 0.9 % Sodium Chloride 100 ML IVPB ONE (07:52)
[2017-06-17] MEDS: *HR* LORazepam 2 MG/ML VIAL IVP PRN ×5 (08:47→22:45)
[2017-06-17] MEDS: Chlorhexidine Rinse 15 ML MOUTHWASH MM SCH ×2 (08:53→19:16)
--- NOTE | 2017-06-17 09:19 | Pulmonology Progress Note ---
Date of Encounter: 06/17/17 Time of Encounter: 09:18 Assessment and Plan (1) Acute and chronic respiratory failure ([id number]) Current Visit: Yes Status: Acute Remains on ventilator and that was adjusted to improve respiratory mechanics to DC plus. We will increase respiratory rate for hypercapnia on today's ABG repeat ABG in the morning she is not a candidate for spontaneous breathing trial today because of delirium we will try again tomorrow Qualifiers: Respiratory failure complication: hypoxia and hypercapnia Qualified Code(s) : J96.21 - Acute and chronic respiratory failure with hypoxia; J96.22 - Acute and chronic respiratory failure with hypercapnia; J96.22 - Acute and chronic respiratory failure with hypercapnia; J96.22 - Acute and chronic respiratory failure with hypercapnia (2) Hypotension Current Visit: Yes Status: Acute This is multifactorial including sedation, low intravascular volume and infection. She remains fluid responsive goal map around 60 no evidence of end organ hypoperfusion at this time Qualifiers: Qualified Code(s): I95.9 - Hypotension, unspecified (3) CHF (congestive heart failure) Current Visit: Yes Status: Acute Elevated BNP with a history of the heart failure we are being very judicious of fluid that we are giving her no evidence of overt failure holding antihypertensives because of hypotension Qualifiers: Congestive heart failure chronicity: chronic Qualified Code(s): I50.9 - Heart failure, unspecified (4) Anxiety Current Visit: Yes Status: Chronic Thanks chronic anxiety with suspected delirium continue Precedex as needed with intermittent use of benzodiazepines as she takes this on a chronic basis. We will continue to avoid sensory deprivation focus on sleep cycle spiritism and in general try to avoid STRIPER MACHINE depressants as we are able to (5) PNA (pneumonia) Current Visit: Yes Status: Suspected This is secondary to RSV with possibility of bacterial coinfection and she is being covered possibly bacterial pneumonia with planned to de-escalate//stop tomorrow if no clear evidence of bacterial coinfection Qualifiers: Pneumonia type: due to unspecified organism Laterality: left Lung location: lower lobe of lung Qualified Code(s): J18.1 - Lobar pneumonia, unspecified organism (6) COPD exacerbation Current Visit: Yes Status: Acute She is and given bronchodilators and IV steroids continue to monitor (7) Goals of care, counseling/discussion Current Visit: Yes Status: Acute Patient was DNR CC at [facility] recently this was rescinded upon respiratory distress in the emergency department. I have not been able to contact any next of kin at this time but per nurse report they are supposed becoming into the hospital this may best to speak with them overall prognosis is not good in the long-term given advanced nature of her lung disease complicated by chronic anxiety. Palliative care consultation is also indicated Subjective Principal diagnosis: Respiratory Failure Interval history: Patient's blood pressure had been labile overnight but responded to fluid challenges. She was much more uncomfortable on the ventilator today. Objective PUL Vital signs: Last Vital Signs Temp 97.9 F 06/17/17 07:45 Pulse 58 06/17/17 08:05 Resp 14 06/17/17 08:11 BP 145/60 06/17/17 08:11 Pulse Ox 97 06/17/17 08:11 General appearance: appears uncomfortable Eyes: nonicteric Auscultation: bilateral: diminished breath sounds Extremities: no edema non-focal exam anxious Ventilator Settings Ventilator Settings: Ventilator Settings, Last 8 Hours Ventilator Mode A/C Ventilator Mode A/C Ventilator Mode A/C Ventilator Mode A/C Ventilator Mode A/C Ventilator Mode A/C Ventilator Mode A/C Ventilator Tidal Volume 400 Setting Ventilator Tidal Volume 400 Setting Ventilator Tidal Volume 400 Setting Ventilator Tidal Volume 400 Setting Ventilator Tidal Volume 400 Setting Ventilator Tidal Volume 400 Setting Ventilator Tidal Volume 400 Setting Ventilator Respiratory Rate 14 Setting Ventilator Respiratory Rate 14 Setting Ventilator Respiratory Rate 14 Setting Ventilator Respiratory Rate 14 Setting Ventilator Respiratory Rate 14 Setting Ventilator Respiratory Rate 14 Setting Ventilator Respiratory Rate 14 Setting Actual Respiratory Rate 14 Actual Respiratory Rate 24 Actual Respiratory Rate 14 Actual Respiratory Rate 14 Actual Respiratory Rate 14 Actual Respiratory Rate 14 Positive End Expiratory 5 Pressure Positive End Expiratory 5 Pressure Positive End Expiratory 5 Pressure Positive End Expiratory 5 Pressure Positive End Expiratory 5 Pressure Positive End Expiratory 5 Pressure Positive End Expiratory 5 Pressure Peak Inspiratory Airway 48 Pressure Peak Inspiratory Airway 40 Pressure Peak Inspiratory Airway 40 Pressure Peak Inspiratory Airway 47 Pressure Peak Inspiratory Airway 46 Pressure Peak Inspiratory Airway 41 Pressure Results - Laboratory Findings CBC and BMP: 06/17/17 03:48 06/17/17 03:48 ABG ABG pH 7.28 pH Units (7.32-7.45) L 06/17/17 06:24 ABG pCO2 82 mmHg (35-45) H* 06/17/17 06:24 ABG pO2 80 mmHg (85-104) L 06/17/17 06:24 ABG O2 Saturation 93 % (95-98) L 06/17/17 06:24 Abnormal lab findings: Abnormal lab results RBC 2.99 M/mcL (3.82-4.97) L 06/17/17 03:48 Hgb 9.6 g/dL (11.5-15.4) L D 06/17/17 03:48 Hct 31.5 % (35.3-44.9) L 06/17/17 03:48 MCV 105.4 fL (83.0-100.0) H 06/17/17 03:48 MCHC 30.5 g/dL (31.6-35.5) L 06/17/17 03:48 Nucleated RBCs/100 WBC 0.2 /100 WBC (0) H 06/16/17 04:05 ABG pH 7.28 pH Units (7.32-7.45) L 06/17/17 06:24 ABG pCO2 82 mmHg (35-45) H* 06/17/17 06:24 ABG pO2 80 mmHg (85-104) L 06/17/17 06:24 ABG HCO3 38 mEq/L (21-27) H 06/17/17 06:24 ABG Total CO2 41 mEq/L (20-26) H 06/17/17 06:24 ABG O2 Saturation 93 % (95-98) L 06/17/17 06:24 ABG Base Excess 9 mEq/L (-2 to 3) H 06/17/17 06:24 Carbon Dioxide 31 mEq/L (23-29) H 06/17/17 03:48 Creatinine 0.55 mg/dL (0.60-1.20) L 06/17/17 03:48 Glucose 151 mg/dL (70-105) H 06/17/17 03:48 POC Glucose 145 (58-89) H 06/17/17 00:31 Calcium 7.9 mg/dL (8.6-10.3) L 06/17/17 03:48 Magnesium 1.1 mg/dL (1.6-2.6) L 06/17/17 03:48 B-Natriuretic Peptide 298 pg/mL (Less than 100) H 06/16/17 04:05 Urine Protein 30 mg/dL (Neg-Trace) H 06/16/17 04:39 Urine Microscopic RBC 3-5 per hpf (0-3) H 06/16/17 04:39 Ur Squamous Epith Cells Many per lpf (None-Few) H 06/16/17 04:39 RSV (PCR) DETECTED (Not Detect) A 06/16/17 08:15 - Microbiology Findings Microbiology Findings: Microbiology, Last 48 Hours 06/16/17 11:15 Legionella Antigen - Final Urine,[place] Streptococcus pneumoniae Antigen (M - Final - Clinical Findings Intake & Output: Intake & Output 06/16/17 06/17/17 06/17/17 23:59 07:59 15:59 Intake Total 586 / 586 69 / 69 Output Total 50 / 50 150 / 150 Balance 536 / 536 -81 / -81 Consult Discharge Plan - Plan [facility]errals: [facility] [Primary Care Provider] -
[2017-06-17] MEDS: Docusate Oral Soln 100 MG/10 ML UDC PO SCH ×2 (09:22→19:18)
[2017-06-17] MEDS ORDERED: Albumin Human 5% 25.0 GM/500 ML VIAL ONE (09:25)
[2017-06-17] MEDS: Levalbuterol Neb 0.63 MG/3 ML IH SCH ×3 (10:11→21:15)
[2017-06-17] MEDS: Azithromycin 500 MG in D5% in Water 250 ML IVPB SCH (15:18)
[2017-06-17] MEDS: cefTRIAXone 2,000 MG in Water for inj. (sterile) 20 ML 20 ML IVP SCH (15:21)
[2017-06-17] MEDS: FentaNYL (PF) 1,000 MCG in 0.9 % Sodium Chloride 80 ML IVC SCH ×2 (19:17→22:15)
[2017-06-18] MEDS: MethylPREDNISolone 40 MG/ML VIAL IVP SCH ×4 (00:06→23:33)
[2017-06-18] MEDS: Lacri-Lube 3.5 GM TUBE BOTH EYES SCH ×7 (00:06→23:33)
[2017-06-18] MEDS: *HR* LORazepam 2 MG/ML VIAL IVP PRN (00:38)
[2017-06-18] MEDS: Dexmedetomidine HCl 400 MCG/100 ML MLS IVC SCH ×2 (01:14→18:20)
[2017-06-18] MEDS: Ipratropium/Albuterol Neb 3 ML IH PRN ×2 (01:24→08:30)
[2017-06-18] MEDS: Levalbuterol Neb 0.63 MG/3 ML IH SCH ×4 (03:13→20:07)
[2017-06-18 04:48] LABS: Basophils % 0.1 %; Hematocrit 31.7 % (35.3-44.9); Hemoglobin 9.7 g/dL (11.5-15.4); Immature Granulocytes % 0.8 % (0-4); Lymphocytes # 0.4 K/mcL (0.6-4.6); Lymphocytes % 5.2 %; Mean Corpuscular HGB Conc 30.6 g/dL (31.6-35.5); Mean Corpuscular Hemoglobin 31.9 pg (28.0-33.3); Mean Corpuscular Volume 104.3 fL (83.0-100.0); Mean Platelet Volume 10.3 fL (9.4-12.4); Monocytes # 0.4 K/mcL (0.0-1.3); Monocytes % 4.4 %; Neutrophils # 7.1 K/mcL (1.6-8.9); Nucleated Red Blood Cells 0.4 /100 WBC (0); Platelet Count 172 K/mcL (140-400); Red Blood Count 3.04 M/mcL (3.82-4.97); Segmented Neutrophils % 89.5 %
[2017-06-18] MEDS: Pantoprazole 40 MG VIAL IVP SCH (05:19)
[2017-06-18] MEDS: *HR* Enoxaparin 40 MG/0.4 ML SYRINGE SQ SCH (05:19)
[2017-06-18] MEDS: FentaNYL (PF) 1,000 MCG in 0.9 % Sodium Chloride 80 ML IVC SCH ×2 (05:20→23:39)
[2017-06-18 06:12] LABS: ABG Base Excess 12 mEq/L (-2 to 3); ABG HCO3 40 mEq/L (21-27); ABG Oxygen Saturation 94 % (95-98); ABG PCO2 74 mmHg (35-45); ABG PH 7.34 pH Units (7.32-7.45); ABG PO2 77 mmHg (85-104); ABG TCO2 43 mEq/L (20-26); Blood Gas Modality ASSIST CONTROL; Blood Gas PEEP 5 cm H2O; Blood Gas Respiration Rate 16; Blood Gas VT 400 cc
[2017-06-18] MEDS: Docusate Oral Soln 100 MG/10 ML UDC PO SCH ×2 (08:06→19:52)
[2017-06-18] MEDS: Chlorhexidine Rinse 15 ML MOUTHWASH MM SCH ×2 (08:06→19:52)
[2017-06-18 08:38] LABS: Blood Urea Nitrogen 13 mg/dL (8-23); Calcium 9.1 mg/dL (8.6-10.3); Carbon Dioxide 33 mEq/L (23-29); Chloride 99 mEq/L (98-107); Glucose 170 mg/dL (70-105); Magnesium 2.1 mg/dL (1.6-2.6); Osmolality,Calculated 292 (280-300); Potassium 4.5 mEq/L (3.5-5.1); Sodium 139 mEq/L (136-145)
[2017-06-18 09:24] LABS: BUN/Creatinine Ratio 21 (6-26); eGFR For African Americans > 60 (> 60); eGFR For Non-African Americans > 60 (> 60)
--- NOTE | 2017-06-18 09:39 | Pulmonology Progress Note ---
<AlexVarghese Al - Last Filed: 06/18/17 11:33> Date of Encounter: 06/18/17 Time of Encounter: 09:37 Assessment and Plan (1) Acute and chronic respiratory failure ([id number]) Current Visit: Yes Status: Acute Secondary to RSV pneumonia and COPD exacerbation On ventilator and sedated - switched from propofol to precedex - easily arousable and follows commands Blood culture NGTD Pt was agitated overnight - will give Seroquel - ECG shows no QT prolongation Azithromycin - complete 3 doses Nutrition consult for enteral feedings Patient was previously DNR but switched to Full Code when admitted - palliative consult for goals of care Qualifiers: Respiratory failure complication: hypoxia and hypercapnia Qualified Code(s) : J96.21 - Acute and chronic respiratory failure with hypoxia; J96.22 - Acute and chronic respiratory failure with hypercapnia; J96.22 - Acute and chronic respiratory failure with hypercapnia; J96.22 - Acute and chronic respiratory failure with hypercapnia (2) PNA (pneumonia) Current Visit: Yes Status: Suspected Secondary to RSV - possible bacterial as well Legionella antigen negative Qualifiers: Pneumonia type: due to unspecified organism Laterality: left Lung location: lower lobe of lung Qualified Code(s): J18.1 - Lobar pneumonia, unspecified organism (3) Hypotension Current Visit: Yes Status: Acute Likely related to sedation, low intravascular volume, and infection Urine output -115ml out Will give albumin for pressure support and increase urine output Qualifiers: Hypotension type: unspecified hypotension type Qualified Code(s): I95.9 - Hypotension, unspecified (4) CHF (congestive heart failure) Current Visit: Yes Status: Acute Chronic CHF with no evidence of acute exacerbation - will monitor fluids closely Qualifiers: Congestive heart failure type: unspecified Congestive heart failure chronicity: chronic Qualified Code(s): I50.9 - Heart failure, unspecified (5) COPD exacerbation Current Visit: Yes Status: Acute Continue bronchodilators. Steroids q8h (6) Anxiety Current Visit: Yes Status: Chronic History of anxiety and aggitated during hospitalization Will use Seroquel for sedation (7) DVT prophylaxis Current Visit: Yes Status: Acute Subjective Principal diagnosis: Respiratory Failure Interval history: Pt seen and examined. Easily arousable and follows commands. The pt has been very anxious overnight. Objective PUL Vital signs: Last Vital Signs Temp 97.8 F 06/18/17 08:05 Pulse 101 06/18/17 09:00 Resp 25 06/18/17 09:00 BP 150/77 06/18/17 09:00 Pulse Ox 89 06/18/17 09:00 General appearance: no acute distress Eyes: nonicteric ENT: oropharynx moist Effort: mildly labored Auscultation: bilateral: diminished breath sounds, wheezes Cardiovascular: regular rate and rhythm Gastrointestinal: normoactive bowel sounds Extremities: no cyanosis, no edema non-focal exam, pupils equal and round Ventilator Settings Ventilator Settings: Ventilator Settings, Last 8 Hours Ventilator Mode VC+ Ventilator Mode VC+ Ventilator Mode VC+ Ventilator Mode VC+ Ventilator Mode VC+ Ventilator Mode VC+ Ventilator Mode VC+ Ventilator Mode VC+ Ventilator Mode VC+ Ventilator Tidal Volume 400 Setting Ventilator Tidal Volume 400 Setting Ventilator Tidal Volume 400 Setting Ventilator Tidal Volume 400 Setting Ventilator Tidal Volume 400 Setting Ventilator Tidal Volume 400 Setting Ventilator Tidal Volume 400 Setting Ventilator Tidal Volume 400 Setting Ventilator Tidal Volume 400 Setting Ventilator Respiratory Rate 16 Setting Ventilator Respiratory Rate 16 Setting Ventilator Respiratory Rate 16 Setting Ventilator Respiratory Rate 16 Setting Ventilator Respiratory Rate 16 Setting Ventilator Respiratory Rate 16 Setting Ventilator Respiratory Rate 16 Setting Ventilator Respiratory Rate 16 Setting Ventilator Respiratory Rate 16 Setting Actual Respiratory Rate 23 Actual Respiratory Rate 22 Actual Respiratory Rate 16 Actual Respiratory Rate 16 Actual Respiratory Rate 16 Actual Respiratory Rate 18 Actual Respiratory Rate 18 Actual Respiratory Rate 19 Actual Respiratory Rate 19 Actual Respiratory Rate 16 Positive End Expiratory 5 Pressure Positive End Expiratory 5 Pressure Positive End Expiratory 5 Pressure Positive End Expiratory 5 Pressure Positive End Expiratory 5 Pressure Positive End Expiratory 5 Pressure Positive End Expiratory 5 Pressure Positive End Expiratory 5 Pressure Positive End Expiratory 5 Pressure Positive End Expiratory 5 Pressure Positive End Expiratory 5 Pressure Peak Inspiratory Airway 33 Pressure Peak Inspiratory Airway 38 Pressure Peak Inspiratory Airway 43 Pressure Peak Inspiratory Airway 42 Pressure Peak Inspiratory Airway 39 Pressure Peak Inspiratory Airway 41 Pressure Peak Inspiratory Airway 32 Pressure Peak Inspiratory Airway 40 Pressure Peak Inspiratory Airway 38 Pressure Peak Inspiratory Airway 37 Pressure Results - Laboratory Findings CBC and BMP: 06/18/17 04:38 06/18/17 04:38 ABG ABG pH 7.34 pH Units (7.32-7.45) 06/18/17 06:09 ABG pCO2 74 mmHg (35-45) H* 06/18/17 06:09 ABG pO2 77 mmHg (85-104) L 06/18/17 06:09 ABG O2 Saturation 94 % (95-98) L 06/18/17 06:09 Abnormal lab findings: Abnormal lab results RBC 3.04 M/mcL (3.82-4.97) L 06/18/17 04:38 Hgb 9.7 g/dL (11.5-15.4) L 06/18/17 04:38 Hct 31.7 % (35.3-44.9) L 06/18/17 04:38 MCV 104.3 fL (83.0-100.0) H 06/18/17 04:38 MCHC 30.6 g/dL (31.6-35.5) L 06/18/17 04:38 Lymphocytes # 0.4 K/mcL (0.6-4.6) L 06/18/17 04:38 Nucleated RBCs/100 WBC 0.4 /100 WBC (0) H 06/18/17 04:38 ABG pCO2 74 mmHg (35-45) H* 06/18/17 06:09 ABG pO2 77 mmHg (85-104) L 06/18/17 06:09 ABG HCO3 40 mEq/L (21-27) H 06/18/17 06:09 ABG Total CO2 43 mEq/L (20-26) H 06/18/17 06:09 ABG O2 Saturation 94 % (95-98) L 06/18/17 06:09 ABG Base Excess 12 mEq/L (-2 to 3) H 06/18/17 06:09 Carbon Dioxide 33 mEq/L (23-29) H 06/18/17 04:38 Glucose 170 mg/dL (70-105) H 06/18/17 04:38 POC Glucose 174 (58-89) H 06/18/17 00:13 B-Natriuretic Peptide 298 pg/mL (Less than 100) H 06/16/17 04:05 Urine Protein 30 mg/dL (Neg-Trace) H 06/16/17 04:39 Urine Microscopic RBC 3-5 per hpf (0-3) H 06/16/17 04:39 Ur Squamous Epith Cells Many per lpf (None-Few) H 06/16/17 04:39 RSV (PCR) DETECTED (Not Detect) A 06/16/17 08:15 - Microbiology Findings Microbiology Findings: Microbiology, Last 48 Hours 06/16/17 11:15 Legionella Antigen - Final Urine,Roche Port Streptococcus pneumoniae Antigen (M - Final - Clinical Findings Intake & Output: Intake & Output 06/17/17 06/18/17 06/18/17 23:59 07:59 15:59 Intake Total 370 / 370 110 / 110 Output Total 325 / 325 225 / 225 Balance 45 / 45 -115 / -115 Weight 63.5 kg Consult Discharge Plan - Plan [facility]errals: [facility] [Primary Care Provider[facility] - <Lexis Darling - Last Filed: 06/19/17 08:55> Date of Encounter: 06/19/17 Objective PUL Vital signs: Last Vital Signs Temp 98.1 F 06/18/17 12:11 Pulse 57 06/18/17 18:00 Resp 16 06/18/17 18:00 BP 145/78 06/18/17 18:00 Pulse Ox 99 06/18/17 18:00 Ventilator Settings Ventilator Settings: Ventilator Settings, Last 8 Hours Ventilator Mode VC+ Ventilator Mode VC+ Ventilator Mode VC+ Ventilator Tidal Volume 400 Setting Ventilator Tidal Volume 400 Setting Ventilator Tidal Volume 400 Setting Ventilator Respiratory Rate 16 Setting Ventilator Respiratory Rate 16 Setting Ventilator Respiratory Rate 16 Setting Actual Respiratory Rate 16 Actual Respiratory Rate 15 Actual Respiratory Rate 16 Actual Respiratory Rate 15 Actual Respiratory Rate 15 Actual Respiratory Rate 16 Actual Respiratory Rate 16 Actual Respiratory Rate 16 Actual Respiratory Rate 16 Actual Respiratory Rate 25 Positive End Expiratory 5 Pressure Positive End Expiratory 5 Pressure Positive End Expiratory 5 Pressure Positive End Expiratory 5 Pressure Positive End Expiratory 5 Pressure Positive End Expiratory 5 Pressure Positive End Expiratory 5 Pressure Positive End Expiratory 5 Pressure Positive End Expiratory 5 Pressure Positive End Expiratory 5 Pressure Peak Inspiratory Airway 42 Pressure Peak Inspiratory Airway 37 Pressure Peak Inspiratory Airway 35 Pressure Peak Inspiratory Airway 31 Pressure Results - Laboratory Findings CBC and BMP: 06/19/17 06:01 06/19/17 06:01 ABG ABG pH 7.34 pH Units (7.32-7.45) 06/18/17 06:09 ABG pCO2 74 mmHg (35-45) H* 06/18/17 06:09 ABG pO2 77 mmHg (85-104) L 06/18/17 06:09 ABG O2 Saturation 94 % (95-98) L 06/18/17 06:09 Abnormal lab findings: Abnormal lab results RBC 3.04 M/mcL (3.82-4.97) L 06/18/17 04:38 Hgb 9.7 g/dL (11.5-15.4) L 06/18/17 04:38 Hct 31.7 % (35.3-44.9) L 06/18/17 04:38 MCV 104.3 fL (83.0-100.0) H 06/18/17 04:38 MCHC 30.6 g/dL (31.6-35.5) L 06/18/17 04:38 Lymphocytes # 0.4 K/mcL (0.6-4.6) L 06/18/17 04:38 Nucleated RBCs/100 WBC 0.4 /100 WBC (0) H 06/18/17 04:38 ABG pCO2 74 mmHg (35-45) H* 06/18/17 06:09 ABG pO2 77 mmHg (85-104) L 06/18/17 06:09 ABG HCO3 40 mEq/L (21-27) H 06/18/17 06:09 ABG Total CO2 43 mEq/L (20-26) H 06/18/17 06:09 ABG O2 Saturation 94 % (95-98) L 06/18/17 06:09 ABG Base Excess 12 mEq/L (-2 to 3) H 06/18/17 06:09 Carbon Dioxide 33 mEq/L (23-29) H 06/18/17 04:38 Glucose 170 mg/dL (70-105) H 06/18/17 04:38 POC Glucose 142 (58-89) H 06/18/17 18:22 B-Natriuretic Peptide 298 pg/mL (Less than 100) H 06/16/17 04:05 Urine Protein 30 mg/dL (Neg-Trace) H 06/16/17 04:39 Urine Microscopic RBC 3-5 per hpf (0-3) H 06/16/17 04:39 Ur Squamous Epith Cells Many per lpf (None-Few) H 06/16/17 04:39 RSV (PCR) DETECTED (Not Detect) A 06/16/17 08:15 - Microbiology Findings Microbiology Findings: Microbiology, Last 48 Hours 06/16/17 11:15 Legionella Antigen - Final Urine,Roche Port Streptococcus pneumoniae Antigen (M - Final - Clinical Findings Intake & Output: Intake & Output 06/18/17 06/18/17 06/18/17 07:59 15:59 23:59 Intake Total 110 / 110 500 / 500 90 / 90 Output Total 225 / 225 100 / 100 50 / 50 Balance -115 / -115 400 / 400 40 / 40 Weight 63.5 kg - Attending Attestation I saw and evaluated this patient and my medical decision-making was reviewed with the Resident Physician. I agree with the documented findings, disposition and treatment plan as described except to the extent set forth below. We independently had [id number] contact with the patient I spent of 35 minutes of Critical Care time with this patient. It involved decision making of high complexity to assess, manipulate, and support vital organ system failure and/or to prevent further life threatening deterioration of the patient's condition. The time involved in the performance of separately reportable procedures was not counted toward critical care time. Patient seen and examined at bedside Labs, radiology, chart personally reviewed. COMPUTER AIDED DESIGN TECHNICIAN:Patient looks agitated follows commands appears agitated on ventilator intubated and sedated will transition to precedex , fentanyl will start on antipsychotics because of underlying anxiety it will be a difficult to extubate as it will be difficult to transition to BIPAP Pulm:Acute on chronic respiratory failure secondary to COPD Exacerbation , Viral pneumonia complicated by fluid overload will hold off diuresis because of borderline blood pressures . To complete the course of Azithromycin , No growth in cultures till date . Tidal volume and RR was adjusted Cards:Blood pressure is borderline secondary to sedation vs volume depletion will continue with prn colloid resuscitation FEN-GI:Tube ffeds Renal:Labs reviewed and UOP ID: Cultures are negative till date to descalate antibiotics Heme/Onc:Labs reviewed Endo: Glucose Monitored Integ/MSK: Skin Care per routine ICU Nursing Protocol to prevent ulcers. Lines: All lines examined without evidence of infection : Dispo: Critically ill CODE: Full code Palliative consult appreciated spoke with Sister and Brother
[2017-06-18] MEDS: Insulin LISPRO 300 UNITS/3 ML VIAL SQ SCH ×3 (10:17→18:22)
[2017-06-18] MEDS: cefTRIAXone 2,000 MG in Water for inj. (sterile) 20 ML 20 ML IVP SCH (10:20)
[2017-06-18] MEDS: Azithromycin 500 MG in D5% in Water 250 ML IVPB SCH (10:21)
--- NOTE | 2017-06-18 13:57 | Palliative - Consult Note ---
Date of Encounter: 06/18/17 Time of Encounter: 13:55 - Assessment and Plan (1) Dyspnea Current Visit: Yes Status: Acute Assessment and plan: Patient remains sedated on vent. Receiving atb/steroids/bronchodilators. Monitor Qualifiers: Dyspnea type: unspecified Qualified Code(s): R06.00 - Dyspnea, unspecified (2) Goals of care, counseling/discussion Current Visit: Yes Status: Acute Assessment and plan: Patient sedated - did open yes and shake head yes for me once, but became very anxious and then closed eyes and appeared to drift back to sleep. Met with sister Irma (POA) and brother Moiz (alternate POA). Discussed goals of care and code status, that document that was transferred from DC stated she was DNRCC. Communicated with sister Irma via writing as she is deaf and had difficulty reading my lips. They state that she had rescinded her DNR, but had not revised the documents previously completed at the DC. Brother Moiz, stated he was getting frustrated with continued questioning regarding code status, as they had told [facility], and the DC that she had changed her mind. This information appears in alignment with what patient communicated before she was intubated. Code status remains FULL. Discussed that with her anxiety, weaning trials may be challenging, and if they knew pt desire if she were unable to wean from vent, - they both stated they do not believe she would want tracheostomy and alf vent support. Also discussed that with her COPD , at some point, pt lungs do fail and can be a terminal diagnosis. They verbalized understanding. Prior to hospitalizations, pt lived with sister Irma. She has oxygen and nebulizer at home. During this meeting, brother inquired about bipap. Discussed that once she is extubated, she could have evaluation for need of bipap on discharge. Her Family lives in [facility], and communicated that they could not be here everyday, but did state could be contacted by phone. Irma's phone linked up with some type of communication device. Discussed that after a few more days of treatment - would possibly need to meet again later in the week. (Sun/). I provided them my telephone information as well. Irma ROLLINS(sister)- [phone] Moiz Smith (brother) alternate POA- [phone] Interpretive services that Irma utilized for home communication - [employer], [phone] If patient does successfully wean off ventilator, we will discuss revising her advanced directives and communicate this to the DC. Will continue to follow clinical course . (3) Acute respiratory failure with hypercapnia Current Visit: Yes Status: Acute (4) COPD exacerbation Current Visit: Yes Status: Acute Palliative-CN HPI - Data of Consult Consult date: 06/18/17 Requesting Physician: Kolby Beltrán MD Primary Care Provider: PCP DC - Consult Narrative History of present illness: Ms. Smith is a 62 year old female with a past medical history of anemia, chronic systolic heart failure, anxiety, low back pain, GERD, depression, mood disorder, hypertension, hyperlipidemia and severe COPD who presents to the [facility] chief complaint short of breath. Patient's brother, Moiz and sister Irma are here at hospital providing information. Brother states she was transferred from [facility] to the DC, and was doing very well on nasal cannula until last Sunday, when she developed severe shortness of breath and was transferred here. She was admitted to the intensive care unit for acute respiratory failure secondary to COPD exacerbation and suspected pneumonia. She also testing + for RSV. Upon my visit, pt is sedated and ventilated. Apparently, yesterday she was able to follow commands and communicate with writing, but sedation was titrated r/to anxiety. She currently awakens periodically, but did not follow commands for me. She appears very anxious when awake. She remains on IV antibiotic/ steroids. Initially she was hypotensive on arrival to ICU, but responded to boluses. O CC: Kolby Beltrán MD Past Med Surg Social Fam HX - Past Medical History Medical history: CHF, COPD, GERD, hyperlipidemia, hypertension Psychiatric history: depression - Past Surgical History Surgical History: no surgical history (unable to obtain given sedated/intubated state) - Social History Smoking Status: Unknown if ever smoked Smokeless Tobacco Status: No Alcohol use: none Drug use: none Medications and Allergies Acetaminophen [Tylenol] 650 mg PO Q6HR PRN MDD 3000MG 06/17/17 [History] Ascorbic Acid [Vitamin C] 250 mg PO DAILY 06/17/17 [History] Atorvastatin [Lipitor] 40 mg PO HS 06/17/17 [History] Bisacodyl [Dulcolax] 10 mg RC DAILY PRN 06/17/17 [History] Budesonide/Formoterol 160/4.5 [Symbicort 160/4.5] 2 puff IH BIDR 06/17/17 [ History] Buspirone HCl [Buspar] 7.5 mg PO BID 06/17/17 [History] Carvedilol 12.5 mg PO QPM 06/17/17 [History] Docusate Sodium [Dok] 100 mg PO BID 06/17/17 [History] Ferrous Sulfate [Iron] 325 mg PO DAILY 06/17/17 [History] Garlic Extract [Garlipure] 600 mg PO DAILY 06/17/17 [History] Ginkgo Biloba 40 mg PO DAILY 06/17/17 [History] Insulin LISPRO [HumaLOG] 2 - 12 units SQ TIDWM PRN 06/17/17 [History] Ipratropium/Albuterol Neb [Duoneb] 3 ml IH Q4H PRN 06/17/17 [History] Levalbuterol Neb [Xopenex Neb] 1.25 mg IH Q4H 06/17/17 [History] Levalbuterol [Xopenex] 2 puff IH 1800 06/17/17 [History] Losartan [Cozaar] 25 mg PO DAILY 06/17/17 [History] Milk Thistle 150 mg PO DAILY 06/17/17 [History] Mirtazapine [Remeron] 45 mg PO HS 06/17/17 [History] Mv-Mn/FA/Vit K/Lycop/Lut/Coq10 [Daily Multivitamin Capsule] 1 tab PO DAILY 06/17 [History] [place]-3/Dha/Epa/Fish Oil [Fish Oil 1,000 mg Softgel] 1 tab PO DAILY 06/17/17 [ History] OxyCODONE Immed Rel [Roxicodone 5 MG] 5 mg PO Q6H PRN 06/17/17 [History] Pantoprazole Sodium 40 mg PO DAILY 06/17/17 [History] Potassium Chloride [Klor-Con 10] 10 meq PO DAILY 06/17/17 [History] hydrOXYzine HCl [Hydroxyzine HCl] 25 mg PO TID PRN 06/17/17 [History] lamoTRIgine [Lamictal] 25 mg PO HS 06/17/17 [History] lamoTRIgine [Lamictal] 25 mg PO Q48H PRN 06/17/17 [History] 3 Allergy/AdvReac Type Severity Reaction Status Date / Time aspirin Allergy See Verified 06/17/17 12:27 Comments doxycycline Allergy Difficulty Verified 06/17/17 12:27 Breathing Erythromycin Base Allergy See Verified 06/17/17 12:27 Comments Iodinated Contrast- Oral and Allergy Rash Verified 06/17/17 12:27 IV Dye Latex, Natural Rubber Allergy Rash Verified 06/17/17 12:27 moxifloxacin Allergy Difficulty Verified 06/17/17 12:27 Breathing Pork/Porcine Containing Allergy Vomiting Verified 06/17/17 12:27 Products Sulfa (Sulfonamide Allergy Vomiting Verified 06/17/17 12:27 Antibiotics) ROS unobtainable: due to endotracheal tube, due to mental status Palliative Care-Exam - Constitutional Vitals: Temp Pulse Resp BP Pulse Ox 98.1 F 55 16 160/79 98 06/18/17 12:11 06/18/17 13:00 06/18/17 13:00 06/18/17 13:00 06/18/17 13:00 General appearance: Present: no acute distress - Head Head Exam: Present: normal inspection, normocephalic - Eye Eye exam: Present: normal appearance - Respiratory Respiratory exam: Present: decreased breath sounds Additional comments: Remains on vent - Cardiovascular Cardiovascular exam: Present: +S1, +S2 - GI/Abdominal Exam GI/Abdominal exam: Present: normal bowel sounds, soft - Catheter Type: Urethral (Roche) - Extremities Exam Extremities exam: Present: normal capillary refill, normal inspection - Neurological Exam Additional comments: Sedated on vent - Skin Skin exam: Present: dry, pallor, warm Internal Medicine - CN: Reslt - Labs CBC & Chem 7: 06/18/17 04:38 06/18/17 04:38 Labs: Short CBC 06/18/17 Range/Units 04:38 WBC 8.0 (4.3-11.1) K/mcL Hgb 9.7 L (11.5-15.4) g/dL Hct 31.7 L (35.3-44.9) % Plt Count 172 (140-400) K/mcL Neutrophils # 7.1 (1.6-8.9) K/mcL BMP 06/18/17 04:38 Sodium 139 Potassium 4.5 Chloride 99 Carbon Dioxide 33 H BUN 13 Creatinine 0.63 Glucose 170 H Calcium 9.1 - ABG Interpretation ABG results: ABG ABG pH 7.34 pH Units (7.32-7.45) 06/18/17 06:09 ABG pCO2 74 mmHg (35-45) H* 06/18/17 06:09 ABG pO2 77 mmHg (85-104) L 06/18/17 06:09 ABG O2 Saturation 94 % (95-98) L 06/18/17 06:09 Consult Discharge Plan - Plan [facility]errals: [facility] [Primary Care Provider] - Palliative Quality Palliative Quality: Screen for Code Status: Yes, Screen for Goals of Care: Yes, Screen for Pain: Yes, If Pain Regimen Started, Initiate Bowel Regimen: NA, Screen for Nausea/Vomitting: Yes
[2017-06-18] MEDS ORDERED: *HR* Propofol 500 MG/50 ML BOTTLE IVP ONE (20:22)
[2017-06-19] MEDS: Levalbuterol Neb 0.63 MG/3 ML IH SCH ×3 (00:24→10:49)
[2017-06-19] MEDS: Lacri-Lube 3.5 GM TUBE BOTH EYES SCH ×6 (03:25→23:35)
[2017-06-19] MEDS: Pantoprazole 40 MG VIAL IVP SCH (05:40)
[2017-06-19] MEDS: *HR* Enoxaparin 40 MG/0.4 ML SYRINGE SQ SCH (05:40)
[2017-06-19 05:47] LABS: ABG Base Excess 9 mEq/L (-2 to 3); ABG HCO3 39 mEq/L (21-27); ABG Oxygen Saturation 92 % (95-98); ABG PCO2 95 mmHg (35-45); ABG PH 7.22 pH Units (7.32-7.45); ABG PO2 81 mmHg (85-104); ABG TCO2 42 mEq/L (20-26); Blood Gas Modality VC; Blood Gas PEEP 5 cm H2O; Blood Gas Respiration Rate 16; Blood Gas VT 400 cc
[2017-06-19 06:28] LABS: BUN/Creatinine Ratio 35 (6-26); Blood Urea Nitrogen 22 mg/dL (8-23); Calcium 9.3 mg/dL (8.6-10.3); Carbon Dioxide 35 mEq/L (23-29); Chloride 100 mEq/L (98-107); Glucose 202 mg/dL (70-105); Magnesium 2.2 mg/dL (1.6-2.6); Osmolality,Calculated 299 (280-300); Potassium 4.6 mEq/L (3.5-5.1); Sodium 140 mEq/L (136-145); eGFR For African Americans > 60 (> 60); eGFR For Non-African Americans > 60 (> 60)
[2017-06-19 06:35] LABS: Basophils % 0.2 %; Hematocrit 31.5 % (35.3-44.9); Hemoglobin 9.6 g/dL (11.5-15.4); Immature Granulocytes % 1.9 % (0-4); Lymphocytes # 0.4 K/mcL (0.6-4.6); Lymphocytes % 4.7 %; Mean Corpuscular HGB Conc 30.5 g/dL (31.6-35.5); Mean Corpuscular Hemoglobin 32.1 pg (28.0-33.3); Mean Corpuscular Volume 105.4 fL (83.0-100.0); Mean Platelet Volume 10.6 fL (9.4-12.4); Monocytes # 0.6 K/mcL (0.0-1.3); Monocytes % 6.8 %; Neutrophils # 7.2 K/mcL (1.6-8.9); Platelet Count 223 K/mcL (140-400); Red Blood Count 2.99 M/mcL (3.82-4.97); Red Cell Distribution Width 13.3 % (11.5-14.5); Segmented Neutrophils % 86.4 %
[2017-06-19] MEDS ORDERED: Ipratropium/Albuterol Neb 3 ML IH PRN (07:53)
[2017-06-19] MEDS: MethylPREDNISolone 40 MG/ML VIAL IVP SCH ×3 (08:10→23:31)
[2017-06-19] MEDS: Docusate Oral Soln 100 MG/10 ML UDC PO SCH (08:10)
[2017-06-19] MEDS: Chlorhexidine Rinse 15 ML MOUTHWASH MM SCH ×2 (08:10→20:50)
[2017-06-19] MEDS: Insulin LISPRO 300 UNITS/3 ML VIAL SQ SCH ×5 (08:24→23:35)
[2017-06-19] MEDS ORDERED: Docusate Oral Soln 100 MG/10 ML UDC PO PRN (11:11)
[2017-06-19] MEDS: Levalbuterol Neb 1.25 MG/3 ML IH PRN ×4 (11:22→23:22)
[2017-06-19] MEDS: Ipratropium/Albuterol Neb 3 ML IH SCH ×3 (11:25→23:22)
--- NOTE | 2017-06-19 12:02 | Event Note ---
Date of Encounter: 06/19/17 Time of Encounter: 12:00 Spoke with brother Moiz, as well as Sister Irma through interpretive services. Updated on current clinical status. Irma plans on visiting tomorrow around 1100 and will meet with her then.
[2017-06-19] MEDS: cefTRIAXone 2,000 MG in Water for inj. (sterile) 20 ML 20 ML IVP SCH (12:28)
--- NOTE | 2017-06-19 13:44 | Pulmonology Progress Note ---
Addendum entered and electronically signed by Varghese Johnson DO 06/19/17 14: 05: Stage 1 pressure ulcer on right buttock - present since admission. Continue routine care Original Note: <Varghese Johnson - Last Filed: 06/19/17 13:41> Date of Encounter: 06/19/17 Time of Encounter: 13:41 Assessment and Plan (1) Acute and chronic respiratory failure ([id number]) Current Visit: Yes Status: Acute Secondary to RSV pneumonia and COPD exacerbation On ventilator and sedated - switched back to propofol - easily arousable and follows commands Blood culture NGTD Pt continues to have periods of agitation and anxiety - will give Seroquel BID Azithromycin - completed 3 doses Nutrition consult for enteral feedings Patient was previously DNR but switched to Full Code when admitted - palliative following for goals of care and confirmed that pt is and has been Full Code Schedule duonebs q4h and levalbuterol q2h PRN Qualifiers: Respiratory failure complication: hypoxia and hypercapnia Qualified Code(s) : J96.21 - Acute and chronic respiratory failure with hypoxia; J96.22 - Acute and chronic respiratory failure with hypercapnia; J96.22 - Acute and chronic respiratory failure with hypercapnia; J96.22 - Acute and chronic respiratory failure with hypercapnia (2) PNA (pneumonia) Current Visit: Yes Status: Suspected Secondary to RSV - possible bacterial as well Legionella antigen negative Qualifiers: Pneumonia type: due to unspecified organism Laterality: left Lung location: lower lobe of lung Qualified Code(s): J18.1 - Lobar pneumonia, unspecified organism (3) Hypotension Current Visit: Yes Status: Acute Likely related to sedation, low intravascular volume, and infection Qualifiers: Hypotension type: unspecified hypotension type Qualified Code(s): I95.9 - Hypotension, unspecified (4) CHF (congestive heart failure) Current Visit: Yes Status: Acute Chronic CHF with no evidence of acute exacerbation - will monitor fluids closely Qualifiers: Congestive heart failure type: unspecified Congestive heart failure chronicity: chronic Qualified Code(s): I50.9 - Heart failure, unspecified (5) COPD exacerbation Current Visit: Yes Status: Acute Continue bronchodilators. Steroids q8h (6) Anxiety Current Visit: Yes Status: Chronic History of anxiety and agitated during hospitalization Will use Seroquel for sedation (7) DVT prophylaxis Current Visit: Yes Status: Acute Subjective Principal diagnosis: Respiratory Failure Interval history: Pt seen and examined. Easily arousable and follows commands. She continues to have periods of increased anxiety. Objective PUL Vital signs: Last Vital Signs Temp 97.8 F 06/19/17 11:31 Pulse 112 06/19/17 11:00 Resp 20 06/19/17 13:00 BP 107/76 06/19/17 11:00 Pulse Ox 97 06/19/17 13:00 General appearance: no acute distress Eyes: nonicteric ENT: oropharynx moist Auscultation: bilateral: wheezes, rhonchi Cardiovascular: regular rate and rhythm Gastrointestinal: normoactive bowel sounds Integumentary: normal Extremities: no cyanosis, no edema unable to assess due to mental status Ventilator Settings Ventilator Settings: Ventilator Settings, Last 8 Hours Ventilator Mode VC+ Ventilator Mode VC+ Ventilator Mode VC+ Ventilator Mode VC+ Ventilator Mode VC+ Ventilator Mode VC+ Ventilator Tidal Volume 400 Setting Ventilator Tidal Volume 400 Setting Ventilator Tidal Volume 400 Setting Ventilator Tidal Volume 400 Setting Ventilator Tidal Volume 400 Setting Ventilator Tidal Volume 400 Setting Ventilator Respiratory Rate 20 Setting Ventilator Respiratory Rate 20 Setting Ventilator Respiratory Rate 20 Setting Ventilator Respiratory Rate 20 Setting Ventilator Respiratory Rate 16 Setting Ventilator Respiratory Rate 16 Setting Actual Respiratory Rate 20 Actual Respiratory Rate 20 Actual Respiratory Rate 20 Actual Respiratory Rate 16 Actual Respiratory Rate 20 Actual Respiratory Rate 12 Actual Respiratory Rate 20 Actual Respiratory Rate 20 Actual Respiratory Rate 16 Actual Respiratory Rate 19 Actual Respiratory Rate 18 Positive End Expiratory 5 Pressure Positive End Expiratory 5 Pressure Positive End Expiratory 5 Pressure Positive End Expiratory 5 Pressure Positive End Expiratory 5 Pressure Positive End Expiratory 5 Pressure Positive End Expiratory 5 Pressure Positive End Expiratory 5 Pressure Positive End Expiratory 5 Pressure Positive End Expiratory 5 Pressure Positive End Expiratory 5 Pressure Peak Inspiratory Airway 41 Pressure Peak Inspiratory Airway 44 Pressure Peak Inspiratory Airway 47 Pressure Peak Inspiratory Airway 48 Pressure Peak Inspiratory Airway 48 Pressure Peak Inspiratory Airway 46 Pressure Peak Inspiratory Airway 45 Pressure Peak Inspiratory Airway 45 Pressure Peak Inspiratory Airway 540 Pressure Peak Inspiratory Airway 42 Pressure Peak Inspiratory Airway 45 Pressure Results - Laboratory Findings CBC and BMP: 06/19/17 06:01 06/19/17 06:01 ABG ABG pH 7.22 pH Units (7.32-7.45) L 06/19/17 05:43 ABG pCO2 95 mmHg (35-45) H* 06/19/17 05:43 ABG pO2 81 mmHg (85-104) L 06/19/17 05:43 ABG O2 Saturation 92 % (95-98) L 06/19/17 05:43 Abnormal lab findings: Abnormal lab results RBC 2.99 M/mcL (3.82-4.97) L 06/19/17 06:01 Hgb 9.6 g/dL (11.5-15.4) L 06/19/17 06:01 Hct 31.5 % (35.3-44.9) L 06/19/17 06:01 MCV 105.4 fL (83.0-100.0) H 06/19/17 06:01 MCHC 30.5 g/dL (31.6-35.5) L 06/19/17 06:01 Lymphocytes # 0.4 K/mcL (0.6-4.6) L 06/19/17 06:01 Nucleated RBCs/100 WBC 1.0 /100 WBC (0) H 06/19/17 06:01 ABG pH 7.22 pH Units (7.32-7.45) L 06/19/17 05:43 ABG pCO2 95 mmHg (35-45) H* 06/19/17 05:43 ABG pO2 81 mmHg (85-104) L 06/19/17 05:43 ABG HCO3 39 mEq/L (21-27) H 06/19/17 05:43 ABG Total CO2 42 mEq/L (20-26) H 06/19/17 05:43 ABG O2 Saturation 92 % (95-98) L 06/19/17 05:43 ABG Base Excess 9 mEq/L (-2 to 3) H 06/19/17 05:43 Carbon Dioxide 35 mEq/L (23-29) H 06/19/17 06:01 BUN/Creatinine Ratio 35 (6-26) H 06/19/17 06:01 Glucose 202 mg/dL (70-105) H 06/19/17 06:01 POC Glucose 241 (58-89) H 06/19/17 11:17 B-Natriuretic Peptide 298 pg/mL (Less than 100) H 06/16/17 04:05 Urine Protein 30 mg/dL (Neg-Trace) H 06/16/17 04:39 Urine Microscopic RBC 3-5 per hpf (0-3) H 06/16/17 04:39 Ur Squamous Epith Cells Many per lpf (None-Few) H 06/16/17 04:39 RSV (PCR) DETECTED (Not Detect) A 06/16/17 08:15 - Clinical Findings Intake & Output: Intake & Output 06/18/17 06/19/17 06/19/17 23:59 07:59 15:59 Intake Total 385 / 385 57 / 57 0 / 0 Output Total 125 / 125 100 / 100 100 / 100 Balance 260 / 260 -43 / -43 -100 / -100 Weight 65.01 kg Consult Discharge Plan - Plan Referrals: [facility]Primary Care Provider[facility] - <Lexis Darling S - Last Filed: 06/20/17 06:09> Date of Encounter: 06/20/17 Objective PUL Vital signs: Last Vital Signs Temp 97.9 F 06/20/17 04:00 Pulse 90 06/20/17 06:00 Resp 20 06/20/17 06:00 BP 94/57 06/20/17 06:00 Pulse Ox 98 06/20/17 06:00 Ventilator Settings Ventilator Settings: Ventilator Settings, Last 8 Hours Ventilator Mode VC+ Ventilator Mode VC+ Ventilator Mode VC+ Ventilator Mode VC+ Ventilator Mode VC+ Ventilator Mode VC+ Ventilator Tidal Volume 450 Setting Ventilator Tidal Volume 450 Setting Ventilator Tidal Volume 450 Setting Ventilator Tidal Volume 450 Setting Ventilator Tidal Volume 450 Setting Ventilator Tidal Volume 450 Setting Ventilator Respiratory Rate 20 Setting Ventilator Respiratory Rate 20 Setting Ventilator Respiratory Rate 20 Setting Ventilator Respiratory Rate 20 Setting Ventilator Respiratory Rate 20 Setting Ventilator Respiratory Rate 20 Setting Actual Respiratory Rate 20 Actual Respiratory Rate 20 Actual Respiratory Rate 20 Positive End Expiratory 5 Pressure Positive End Expiratory 5 Pressure Positive End Expiratory 5 Pressure Positive End Expiratory 5 Pressure Positive End Expiratory 5 Pressure Positive End Expiratory 5 Pressure Peak Inspiratory Airway 45 Pressure Peak Inspiratory Airway 47 Pressure Peak Inspiratory Airway 46 Pressure Peak Inspiratory Airway 41 Pressure Peak Inspiratory Airway 34 Pressure Peak Inspiratory Airway 33 Pressure Peak Inspiratory Airway 33 Pressure Peak Inspiratory Airway 25 Pressure Peak Inspiratory Airway 42 Pressure Peak Inspiratory Airway 43 Pressure Peak Inspiratory Airway 42 Pressure Results - Laboratory Findings CBC and BMP: 06/19/17 06:01 06/19/17 06:01 ABG ABG pH 7.31 pH Units (7.32-7.45) L 06/20/17 04:29 ABG pCO2 77 mmHg (35-45) H* 06/20/17 04:29 ABG pO2 89 mmHg (85-104) 06/20/17 04:29 ABG O2 Saturation 95 % (95-98) 06/20/17 04:29 Abnormal lab findings: Abnormal lab results RBC 2.99 M/mcL (3.82-4.97) L 06/19/17 06:01 Hgb 9.6 g/dL (11.5-15.4) L 06/19/17 06:01 Hct 31.5 % (35.3-44.9) L 06/19/17 06:01 MCV 105.4 fL (83.0-100.0) H 06/19/17 06:01 MCHC 30.5 g/dL (31.6-35.5) L 06/19/17 06:01 Lymphocytes # 0.4 K/mcL (0.6-4.6) L 06/19/17 06:01 Nucleated RBCs/100 WBC 1.0 /100 WBC (0) H 06/19/17 06:01 ABG pH 7.31 pH Units (7.32-7.45) L 06/20/17 04:29 ABG pCO2 77 mmHg (35-45) H* 06/20/17 04:29 ABG HCO3 38 mEq/L (21-27) H 06/20/17 04:29 ABG Total CO2 41 mEq/L (20-26) H 06/20/17 04:29 ABG Base Excess 10 mEq/L (-2 to 3) H 06/20/17 04:29 Carbon Dioxide 35 mEq/L (23-29) H 06/19/17 06:01 BUN/Creatinine Ratio 35 (6-26) H 06/19/17 06:01 Glucose 202 mg/dL (70-105) H 06/19/17 06:01 POC Glucose 272 (58-89) H 06/20/17 04:10 B-Natriuretic Peptide 298 pg/mL (Less than 100) H 06/16/17 04:05 Urine Protein 30 mg/dL (Neg-Trace) H 06/16/17 04:39 Urine Microscopic RBC 3-5 per hpf (0-3) H 06/16/17 04:39 Ur Squamous Epith Cells Many per lpf (None-Few) H 06/16/17 04:39 RSV (PCR) DETECTED (Not Detect) A 06/16/17 08:15 - Clinical Findings Intake & Output: Intake & Output 06/19/17 06/19/17 06/20/17 15:59 23:59 07:59 Intake Total 100 / 100 1635 / 1635 377 / 377 Output Total 250 / 250 175 / 175 200 / 200 Balance -150 / -150 1460 / 1460 177 / 177 Weight 66 kg - Attending Attestation I saw and evaluated this patient and my medical decision-making was reviewed with the Resident Physician. I agree with the documented findings, disposition and treatment plan as described except to the extent set forth below. We independently had [id number] contact with the patient I spent of 32 minutes of Critical Care time with this patient. It involved decision making of high complexity to assess, manipulate, and support vital organ system failure and/or to prevent further life threatening deterioration of the patient's condition. The time involved in the performance of separately reportable procedures was not counted toward critical care time. Patient seen and examined at bedside Labs, radiology, chart personally reviewed. [employer]:Patient looks agitated follows commands appears agitated on ventilator intubated and sedated will transition to precedex , fentanyl will start on antipsychotics because of underlying anxiety it will be a difficult to extubate as it will be difficult to transition to BIPAP top of that her lung mechanics are not stable . Pulm:Acute on chronic respiratory failure secondary to COPD Exacerbation , Viral pneumonia complicated by fluid overload will hold off diuresis because of borderline blood pressures . To complete the course of Azithromycin , No growth in cultures till date . Tidal volume and RR was adjusted changed the bronchodilator regimen as patient has some increased wheezing not moving the tidal volume much . Viral exacerbation of COPD might have a prolonged course Cards:Blood pressure is borderline secondary to sedation vs volume depletion will continue with prn colloid resuscitation FEN-GI:Tube feeds Renal:Labs reviewed and UOP ID: Cultures are negative till date to descalate antibiotics Heme/Onc:Labs reviewed Endo: Glucose Monitored Integ/MSK: Skin Care per routine ICU Nursing Protocol to prevent ulcers. Lines: All lines examined without evidence of infection : Dispo: Critically ill CODE: Full code Palliative consult appreciated spoke with Sister and Brother
[2017-06-19] MEDS ORDERED: 0.9 % Sodium Chloride 500 ML IVC ONE (13:48)
--- NOTE | 2017-06-19 16:56 | Electrocardiograph Report ---
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
--- NOTE | 2017-06-19 19:25 | Electrocardiograph Report ---
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
--- NOTE | 2017-06-19 19:33 | Electrocardiograph Report ---
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
[2017-06-19] MEDS: FentaNYL (PF) 1,000 MCG in 0.9 % Sodium Chloride 80 ML IVC SCH (20:16)
[2017-06-20] MEDS: Levalbuterol Neb 1.25 MG/3 ML IH PRN ×3 (01:20→07:33)
[2017-06-20] MEDS: Ipratropium/Albuterol Neb 3 ML IH SCH ×2 (03:48→09:59)
[2017-06-20] MEDS: Lacri-Lube 3.5 GM TUBE BOTH EYES SCH ×5 (04:17→19:54)
[2017-06-20] MEDS: Insulin LISPRO 300 UNITS/3 ML VIAL SQ SCH ×5 (04:18→19:55)
[2017-06-20 04:33] LABS: ABG Base Excess 10 mEq/L (-2 to 3); ABG HCO3 38 mEq/L (21-27); ABG Oxygen Saturation 95 % (95-98); ABG PCO2 77 mmHg (35-45); ABG PH 7.31 pH Units (7.32-7.45); ABG PO2 89 mmHg (85-104); ABG TCO2 41 mEq/L (20-26); Blood Gas Modality VC; Blood Gas PEEP 5 cm H2O; Blood Gas Respiration Rate 20; Blood Gas VT 450 cc
[2017-06-20] MEDS: *HR* Enoxaparin 40 MG/0.4 ML SYRINGE SQ SCH (05:02)
[2017-06-20] MEDS: Pantoprazole 40 MG VIAL IVP SCH (05:02)
[2017-06-20] MEDS: Dexmedetomidine HCl 400 MCG/100 ML MLS IVC SCH (05:58)
[2017-06-20 06:53] LABS: Hematocrit 29.4 % (35.3-44.9); Hemoglobin 8.8 g/dL (11.5-15.4); Mean Corpuscular HGB Conc 29.9 g/dL (31.6-35.5); Mean Corpuscular Hemoglobin 31.9 pg (28.0-33.3); Mean Corpuscular Volume 106.5 fL (83.0-100.0); Nucleated Red Blood Cells 3.5 /100 WBC (0); Platelet Count 201 K/mcL (140-400); Red Blood Count 2.76 M/mcL (3.82-4.97); Red Cell Distribution Width 13.5 % (11.5-14.5)
[2017-06-20] MEDS ORDERED: 0.9 % Sodium Chloride 500 ML IVC ONE (07:48)
[2017-06-20] MEDS: Chlorhexidine Rinse 15 ML MOUTHWASH MM SCH ×2 (08:00→19:54)
[2017-06-20] MEDS: MethylPREDNISolone 40 MG/ML VIAL IVP SCH ×3 (08:00→23:59)
[2017-06-20 08:19] LABS: BUN/Creatinine Ratio 39 (6-26); Blood Urea Nitrogen 24 mg/dL (8-23); Carbon Dioxide 35 mEq/L (23-29); Chloride 101 mEq/L (98-107); Glucose 287 mg/dL (70-105); Magnesium 2.1 mg/dL (1.6-2.6); Osmolality,Calculated 309 (280-300); Potassium 4.5 mEq/L (3.5-5.1); Sodium 142 mEq/L (136-145); eGFR For African Americans > 60 (> 60); eGFR For Non-African Americans > 60 (> 60)
[2017-06-20] MEDS ORDERED: Insulin DETEMIR 100 UNIT/ML X5UNITS SQ ONE (08:30)
--- NOTE | 2017-06-20 08:33 | Pulmonology Progress Note ---
<Varghese Johnson - Last Filed: 06/20/17 11:10> Date of Encounter: 06/20/17 Time of Encounter: 08:26 Assessment and Plan (1) Acute and chronic respiratory failure ([id number]) Current Visit: Yes Status: Acute Secondary to RSV pneumonia and COPD exacerbation On ventilator and sedated - switched back to propofol - easily arousable and follows commands Blood culture NGTD Pt continues to have periods of agitation and anxiety - will give Seroquel BID Antibiotics: Azithromycin - completed 3 doses. Ceftriaxone day 5/7 Nutrition consult for enteral feedings - BG has been consistently in 200's - will add Levemir 5U HS Patient was previously DNR but switched to Full Code when admitted - palliative following for goals of care and confirmed that pt is and has been Full Code Ipatropium q4h and levalbuterol q4h Will place powerglide for improved IV access Qualifiers: Respiratory failure complication: hypoxia and hypercapnia Qualified Code(s) : J96.21 - Acute and chronic respiratory failure with hypoxia; J96.22 - Acute and chronic respiratory failure with hypercapnia; J96.22 - Acute and chronic respiratory failure with hypercapnia; J96.22 - Acute and chronic respiratory failure with hypercapnia (2) PNA (pneumonia) Current Visit: Yes Status: Suspected Secondary to RSV - possible bacterial as well Continue Ceftriaxone day 5/7 - completed 3 days of Azithromycin Legionella antigen negative Qualifiers: Pneumonia type: due to unspecified organism Laterality: left Lung location: lower lobe of lung Qualified Code(s): J18.1 - Lobar pneumonia, unspecified organism (3) Hypotension Current Visit: Yes Status: Acute Likely related to sedation, low intravascular volume, and infection Fluid bolus today Qualifiers: Hypotension type: unspecified hypotension type Qualified Code(s): I95.9 - Hypotension, unspecified (4) CHF (congestive heart failure) Current Visit: Yes Status: Acute Chronic CHF with no evidence of acute exacerbation - will monitor fluids closely Qualifiers: Congestive heart failure type: unspecified Congestive heart failure chronicity: chronic Qualified Code(s): I50.9 - Heart failure, unspecified (5) COPD exacerbation Current Visit: Yes Status: Acute Continue bronchodilators. Steroids q8h (6) Anxiety Current Visit: Yes Status: Chronic History of anxiety and agitated during hospitalization Will use Seroquel for sedation (7) DVT prophylaxis Current Visit: Yes Status: Acute Subjective Principal diagnosis: Respiratory Failure Interval history: Pt seen and examined. Easily arousable and follows commands. She continues to have periods of increased anxiety. Objective PUL Vital signs: Last Vital Signs Temp 97.9 F 06/20/17 04:00 Pulse 90 06/20/17 06:00 Resp 20 06/20/17 07:00 BP 94/57 06/20/17 06:00 Pulse Ox 99 06/20/17 07:00 General appearance: no acute distress Eyes: nonicteric ENT: oropharynx moist Auscultation: bilateral: diminished breath sounds, wheezes Cardiovascular: regular rate and rhythm Gastrointestinal: normoactive bowel sounds Extremities: no cyanosis, no edema pupils equal and round Ventilator Settings Ventilator Settings: Ventilator Settings, Last 8 Hours Ventilator Mode VC+ Ventilator Mode VC+ Ventilator Mode VC+ Ventilator Mode VC+ Ventilator Mode VC+ Ventilator Mode VC+ Ventilator Tidal Volume 450 Setting Ventilator Tidal Volume 450 Setting Ventilator Tidal Volume 450 Setting Ventilator Tidal Volume 450 Setting Ventilator Tidal Volume 450 Setting Ventilator Tidal Volume 450 Setting Ventilator Respiratory Rate 20 Setting Ventilator Respiratory Rate 20 Setting Ventilator Respiratory Rate 20 Setting Ventilator Respiratory Rate 20 Setting Ventilator Respiratory Rate 20 Setting Ventilator Respiratory Rate 20 Setting Actual Respiratory Rate 20 Actual Respiratory Rate 20 Actual Respiratory Rate 20 Actual Respiratory Rate 20 Positive End Expiratory 5 Pressure Positive End Expiratory 5 Pressure Positive End Expiratory 5 Pressure Positive End Expiratory 5 Pressure Positive End Expiratory 5 Pressure Positive End Expiratory 5 Pressure Peak Inspiratory Airway 48 Pressure Peak Inspiratory Airway 45 Pressure Peak Inspiratory Airway 45 Pressure Peak Inspiratory Airway 47 Pressure Peak Inspiratory Airway 46 Pressure Peak Inspiratory Airway 41 Pressure Peak Inspiratory Airway 34 Pressure Peak Inspiratory Airway 33 Pressure Peak Inspiratory Airway 33 Pressure Peak Inspiratory Airway 25 Pressure Results - Laboratory Findings CBC and BMP: 06/20/17 06:25 06/20/17 06:25 ABG ABG pH 7.31 pH Units (7.32-7.45) L 06/20/17 04:29 ABG pCO2 77 mmHg (35-45) H* 06/20/17 04:29 ABG pO2 89 mmHg (85-104) 06/20/17 04:29 ABG O2 Saturation 95 % (95-98) 06/20/17 04:29 Abnormal lab findings: Abnormal lab results RBC 2.99 M/mcL (3.82-4.97) L 06/19/17 06:01 Hgb 9.6 g/dL (11.5-15.4) L 06/19/17 06:01 Hct 31.5 % (35.3-44.9) L 06/19/17 06:01 MCV 105.4 fL (83.0-100.0) H 06/19/17 06:01 MCHC 30.5 g/dL (31.6-35.5) L 06/19/17 06:01 Lymphocytes # 0.4 K/mcL (0.6-4.6) L 06/19/17 06:01 Nucleated RBCs/100 WBC 1.0 /100 WBC (0) H 06/19/17 06:01 ABG pH 7.31 pH Units (7.32-7.45) L 06/20/17 04:29 ABG pCO2 77 mmHg (35-45) H* 06/20/17 04:29 ABG HCO3 38 mEq/L (21-27) H 06/20/17 04:29 ABG Total CO2 41 mEq/L (20-26) H 06/20/17 04:29 ABG Base Excess 10 mEq/L (-2 to 3) H 06/20/17 04:29 Carbon Dioxide 35 mEq/L (23-29) H 06/20/17 06:25 BUN 24 mg/dL (8-23) H 06/20/17 06:25 BUN/Creatinine Ratio 39 (6-26) H 06/20/17 06:25 Glucose 287 mg/dL (70-105) H 06/20/17 06:25 POC Glucose 297 (58-89) H 06/20/17 08:09 Calculated Osmolality 309 (280-300) H 06/20/17 06:25 B-Natriuretic Peptide 298 pg/mL (Less than 100) H 06/16/17 04:05 Urine Protein 30 mg/dL (Neg-Trace) H 06/16/17 04:39 Urine Microscopic RBC 3-5 per hpf (0-3) H 06/16/17 04:39 Ur Squamous Epith Cells Many per lpf (None-Few) H 06/16/17 04:39 RSV (PCR) DETECTED (Not Detect) A 06/16/17 08:15 - Clinical Findings Intake & Output: Intake & Output 06/19/17 06/20/17 06/20/17 23:59 07:59 15:59 Intake Total 1635 / 1635 377 / 377 Output Total 175 / 175 200 / 200 Balance 1460 / 1460 177 / 177 Weight 66 kg Consult Discharge Plan - Plan [facility]errals: [facility] [Primary Care Provider[facility] - <Lexis Darling - Last Filed: 06/20/17 23:28> Date of Encounter: 06/20/17 Objective PUL Vital signs: Last Vital Signs Temp 98.1 F 06/20/17 20:00 Pulse 105 06/20/17 22:00 Resp 20 06/20/17 22:00 BP 154/83 06/20/17 22:00 Pulse Ox 93 06/20/17 22:00 Ventilator Settings Ventilator Settings: Ventilator Settings, Last 8 Hours Ventilator Mode VC+ Ventilator Mode VC+ Ventilator Mode VC+ Ventilator Mode VC+ Ventilator Mode VC+ Ventilator Mode VC+ Ventilator Mode VC+ Ventilator Mode VC+ Ventilator Mode VC+ Ventilator Mode VC+ Ventilator Tidal Volume 400 Setting Ventilator Tidal Volume 400 Setting Ventilator Tidal Volume 400 Setting Ventilator Tidal Volume 400 Setting Ventilator Tidal Volume 400 Setting Ventilator Tidal Volume 400 Setting Ventilator Tidal Volume 400 Setting Ventilator Tidal Volume 400 Setting Ventilator Tidal Volume 400 Setting Ventilator Tidal Volume 400 Setting Ventilator Respiratory Rate 20 Setting Ventilator Respiratory Rate 20 Setting Ventilator Respiratory Rate 20 Setting Ventilator Respiratory Rate 20 Setting Ventilator Respiratory Rate 20 Setting Ventilator Respiratory Rate 20 Setting Ventilator Respiratory Rate 20 Setting Ventilator Respiratory Rate 20 Setting Ventilator Respiratory Rate 20 Setting Ventilator Respiratory Rate 20 Setting Actual Respiratory Rate 20 Actual Respiratory Rate 23 Actual Respiratory Rate 20 Actual Respiratory Rate 22 Actual Respiratory Rate 23 Actual Respiratory Rate 20 Actual Respiratory Rate 20 Actual Respiratory Rate 20 Actual Respiratory Rate 20 Actual Respiratory Rate 23 Positive End Expiratory 5 Pressure Positive End Expiratory 5 Pressure Positive End Expiratory 5 Pressure Positive End Expiratory 5 Pressure Positive End Expiratory 5 Pressure Positive End Expiratory 5 Pressure Positive End Expiratory 5 Pressure Positive End Expiratory 5 Pressure Positive End Expiratory 5 Pressure Positive End Expiratory 5 Pressure Peak Inspiratory Airway 40 Pressure Peak Inspiratory Airway 31 Pressure Peak Inspiratory Airway 33 Pressure Peak Inspiratory Airway 46 Pressure Peak Inspiratory Airway 28 Pressure Peak Inspiratory Airway 36 Pressure Peak Inspiratory Airway 33 Pressure Peak Inspiratory Airway 38 Pressure Peak Inspiratory Airway 40 Pressure Peak Inspiratory Airway 40 Pressure Results - Laboratory Findings CBC and BMP: 06/20/17 06:25 06/20/17 06:25 ABG ABG pH 7.31 pH Units (7.32-7.45) L 06/20/17 04:29 ABG pCO2 77 mmHg (35-45) H* 06/20/17 04:29 ABG pO2 89 mmHg (85-104) 06/20/17 04:29 ABG O2 Saturation 95 % (95-98) 06/20/17 04:29 Abnormal lab findings: Abnormal lab results RBC 2.76 M/mcL (3.82-4.97) L 06/20/17 06:25 Hgb 8.8 g/dL (11.5-15.4) L 06/20/17 06:25 Hct 29.4 % (35.3-44.9) L 06/20/17 06:25 MCV 106.5 fL (83.0-100.0) H 06/20/17 06:25 MCHC 29.9 g/dL (31.6-35.5) L 06/20/17 06:25 Lymphocytes # 0.4 K/mcL (0.6-4.6) L 06/20/17 06:25 Nucleated RBCs/100 WBC 3.5 /100 WBC (0) H 06/20/17 06:25 ABG pH 7.31 pH Units (7.32-7.45) L 06/20/17 04:29 ABG pCO2 77 mmHg (35-45) H* 06/20/17 04:29 ABG HCO3 38 mEq/L (21-27) H 06/20/17 04:29 ABG Total CO2 41 mEq/L (20-26) H 06/20/17 04:29 ABG Base Excess 10 mEq/L (-2 to 3) H 06/20/17 04:29 Carbon Dioxide 35 mEq/L (23-29) H 06/20/17 06:25 BUN 24 mg/dL (8-23) H 06/20/17 06:25 BUN/Creatinine Ratio 39 (6-26) H 06/20/17 06:25 Glucose 287 mg/dL (70-105) H 06/20/17 06:25 POC Glucose 236 (58-89) H 06/20/17 19:49 Calculated Osmolality 309 (280-300) H 06/20/17 06:25 B-Natriuretic Peptide 298 pg/mL (Less than 100) H 06/16/17 04:05 Urine Protein 30 mg/dL (Neg-Trace) H 06/16/17 04:39 Urine Microscopic RBC 3-5 per hpf (0-3) H 06/16/17 04:39 Ur Squamous Epith Cells Many per lpf (None-Few) H 06/16/17 04:39 RSV (PCR) DETECTED (Not Detect) A 06/16/17 08:15 - Clinical Findings Intake & Output: Intake & Output 06/20/17 06/20/17 06/20/17 07:59 15:59 23:59 Intake Total 377 / 377 1426 / 1426 138 / 138 Output Total 250 / 250 400 / 400 150 / 150 Balance 127 / 127 1026 / 1026 -12 / -12 Weight 66 kg - Attending Attestation - Attending Attestation I saw and evaluated this patient and my medical decision-making was reviewed with the Resident Physician. I agree with the documented findings, disposition and treatment plan as described except to the extent set forth below. We independently had [id number] contact with the patient I spent of 33 minutes of Critical Care time with this patient. It involved decision making of high complexity to assess, manipulate, and support vital organ system failure and/or to prevent further life threatening deterioration of the patient's condition. The time involved in the performance of separately reportable procedures was not counted toward critical care time. Patient seen and examined at bedside Labs, radiology, chart personally reviewed. ELECTROTYPER HELPER:Patient has on and off agitation causes ventilator dyssynchrony transitioned to propofol and fentanyl as she suffered severe bradycardia to continue seroquel Pulm:Acute on chronic respiratory failure secondary to COPD Exacerbation , Viral pneumonia complicated by fluid overload to continue diuresis as tolerated . To complete the course of Azithromycin , No growth in cultures till date . Tidal volume and RR was adjusted changed the bronchodilator regimen as patient has some increased wheezing not moving the tidal volume much . The V/Q mismatch is slowly improving not ready for SBT Viral exacerbation of COPD might have a prolonged course Cards:Hemodynamically stable FEN-GI:Tube feeds Renal:Labs reviewed and UOP ID: Cultures are negative till date to descalate antibiotics Heme/Onc:Labs reviewed Endo: Glucose Monitored Integ/MSK: Skin Care per routine ICU Nursing Protocol to prevent ulcers. Lines: All lines examined without evidence of infection : Dispo: Critically ill CODE: Full code Palliative consult appreciated spoke with Sister and Brother
[2017-06-20] MEDS: cefTRIAXone 2,000 MG in Water for inj. (sterile) 20 ML IVP SCH (08:57)
[2017-06-20 09:02] LABS: Lymphocytes # 0.4 K/mcL (0.6-4.6); Monocytes # 0.1 K/mcL (0.0-1.3); Neutrophils # 5.8 K/mcL (1.6-8.9); Platelet Estimate Normal (Normal)
[2017-06-20] MEDS: FentaNYL (PF) 1,000 MCG in 0.9 % Sodium Chloride 80 ML IVC SCH ×2 (10:03→23:59)
[2017-06-20] MEDS: Ipratropium Neb 0.5 MG NEBULIZER IH SCH ×4 (11:26→23:23)
[2017-06-20] MEDS: Levalbuterol Neb 1.25 MG/3 ML IH SCH ×4 (11:27→23:23)
--- NOTE | 2017-06-20 14:51 | Palliative Progress Note ---
Date of Encounter: 06/20/17 Time of Encounter: 14:45 - Assessment and plan (1) Dyspnea Current Visit: Yes Status: Acute Assessment and plan: Continues with vent support/steroids/atb/bronchodilators. Monitor Qualifiers: Dyspnea type: unspecified Qualified Code(s): R06.00 - Dyspnea, unspecified (2) Goals of care, counseling/discussion Current Visit: Yes Status: Acute Assessment and plan: Met with brother Moiz and sister Irma ROLLINS. Updated on clinical status. They both state that patient would not desire to remain on vent for a long period of time, and would not desire tracheostomy. They would like to eventually have her liberated from ventilator and focus on comfort care. However, they need to notify other family members, and want to give them the opportunity to come see patient before she is extubated. Brother, Moiz, stated that he would notify me after he gets ahold of family. Expect they may desire to compassionately extubate or Sunday. D/W Dr. Olguin and primary nurse Goldy Rodarte. (3) Acute respiratory failure with hypercapnia Current Visit: Yes Status: Acute (4) COPD exacerbation Current Visit: Yes Status: Acute - Time Spent With Patient Total time spent is greater than 50% in coordination of care (as documented) at patient's floor/unit and/or counseling patient: 25 - 35 minutes - Subjective Interval history: Patient remains sedated on ventilator. - Constitutional Vitals: Abnormal lab results RBC 2.76 M/mcL (3.82-4.97) L 06/20/17 06:25 Hgb 8.8 g/dL (11.5-15.4) L 06/20/17 06:25 Hct 29.4 % (35.3-44.9) L 06/20/17 06:25 MCV 106.5 fL (83.0-100.0) H 06/20/17 06:25 MCHC 29.9 g/dL (31.6-35.5) L 06/20/17 06:25 Lymphocytes # 0.4 K/mcL (0.6-4.6) L 06/20/17 06:25 Nucleated RBCs/100 WBC 3.5 /100 WBC (0) H 06/20/17 06:25 ABG pH 7.31 pH Units (7.32-7.45) L 06/20/17 04:29 ABG pCO2 77 mmHg (35-45) H* 06/20/17 04:29 ABG HCO3 38 mEq/L (21-27) H 06/20/17 04:29 ABG Total CO2 41 mEq/L (20-26) H 06/20/17 04:29 ABG Base Excess 10 mEq/L (-2 to 3) H 06/20/17 04:29 Carbon Dioxide 35 mEq/L (23-29) H 06/20/17 06:25 BUN 24 mg/dL (8-23) H 06/20/17 06:25 BUN/Creatinine Ratio 39 (6-26) H 06/20/17 06:25 Glucose 287 mg/dL (70-105) H 06/20/17 06:25 POC Glucose 211 (58-89) H 06/20/17 12:02 Calculated Osmolality 309 (280-300) H 06/20/17 06:25 B-Natriuretic Peptide 298 pg/mL (Less than 100) H 06/16/17 04:05 Urine Protein 30 mg/dL (Neg-Trace) H 06/16/17 04:39 Urine Microscopic RBC 3-5 per hpf (0-3) H 06/16/17 04:39 Ur Squamous Epith Cells Many per lpf (None-Few) H 06/16/17 04:39 RSV (PCR) DETECTED (Not Detect) A 06/16/17 08:15 General appearance: Present: no acute distress - Respiratory Respiratory exam: Present: decreased breath sounds Additional comments: very faint expiratory wheezes anterior chest - Cardiovascular Cardiovascular exam: Present: +S1, +S2 - GI/Abdominal GI/Abdominal exam: Present: normal bowel sounds, soft - Extremities Exam Extremities exam: Present: normal capillary refill, normal inspection - Neurological Exam Additional comments: Opens eyes with verbal/tactile stimulation. Did not follow commands for me today. - Skin Skin exam: Present: dry, pallor, warm Palliative Quality Palliative Quality: Screen for Code Status: Yes, Screen for Goals of Care: Yes, Screen for Pain: Yes, If Pain Regimen Started, Initiate Bowel Regimen: NA, Screen for Nausea/Vomitting: Yes - Labs CBC & Chem 7: 06/20/17 06:25 06/20/17 06:25 Labs: Laboratory Results - last 24 hr 06/19/17 06/19/17 06/19/17 15:32 20:15 23:34 WBC RBC Hgb Hct MCV MCH MCHC RDW Plt Count MPV Seg Neutrophils % Band Neutrophils % Lymphocytes % Monocytes % Neutrophils # Lymphocytes # Monocytes # Nucleated RBCs/100 WBC Platelet Estimate Sample Site ABG pH ABG pCO2 ABG pO2 ABG HCO3 ABG Total CO2 ABG O2 Saturation ABG Base Excess Sina Test Respiration Rate O2 Delivery Device Blood Gas Modality Inspired O2 Tidal Volume PEEP Sodium Potassium Chloride Carbon Dioxide BUN Creatinine Est GFR ( Amer) Est GFR (Non-Af Amer) BUN/Creatinine Ratio Glucose POC Glucose 236 H 259 H 213 H Calculated Osmolality Calcium Magnesium 06/20/17 06/20/17 06/20/17 04:10 04:29 06:25 WBC 6.3 RBC 2.76 L Hgb 8.8 L Hct 29.4 L MCV 106.5 H MCH 31.9 MCHC 29.9 L RDW 13.5 Plt Count 201 MPV 11.0 Seg Neutrophils % 88.0 Band Neutrophils % 4.0 Lymphocytes % 6.0 Monocytes % 2.0 Neutrophils # 5.8 Lymphocytes # 0.4 L Monocytes # 0.1 Nucleated RBCs/100 WBC 3.5 H Platelet Estimate Normal Sample Site R Radial ABG pH 7.31 L ABG pCO2 77 H* ABG pO2 89 ABG HCO3 38 H ABG Total CO2 41 H ABG O2 Saturation 95 ABG Base Excess 10 H Sina Test Positive Respiration Rate 20 O2 Delivery Device Adult Vent Blood Gas Modality VC Inspired O2 45.0 Tidal Volume 450 PEEP 5 Sodium Potassium Chloride Carbon Dioxide BUN Creatinine Est GFR ( Amer) Est GFR (Non-Af Amer) BUN/Creatinine Ratio Glucose POC Glucose 272 H Calculated Osmolality Calcium Magnesium 06/20/17 06/20/17 06/20/17 06:25 08:09 12:02 WBC RBC Hgb Hct MCV MCH MCHC RDW Plt Count MPV Seg Neutrophils % Band Neutrophils % Lymphocytes % Monocytes % Neutrophils # Lymphocytes # Monocytes # Nucleated RBCs/100 WBC Platelet Estimate Sample Site ABG pH ABG pCO2 ABG pO2 ABG HCO3 ABG Total CO2 ABG O2 Saturation ABG Base Excess Sina Test Respiration Rate O2 Delivery Device Blood Gas Modality Inspired O2 Tidal Volume PEEP Sodium 142 Potassium 4.5 Chloride 101 Carbon Dioxide 35 H BUN 24 H Creatinine 0.62 Est GFR ( Amer) > 60 Est GFR (Non-Af Amer) > 60 BUN/Creatinine Ratio 39 H Glucose 287 H POC Glucose 297 H 211 H Calculated Osmolality 309 H Calcium 9.0 Magnesium 2.1 - ABG Interpretation ABG results: ABG ABG pH 7.31 pH Units (7.32-7.45) L 06/20/17 04:29 ABG pCO2 77 mmHg (35-45) H* 06/20/17 04:29 ABG pO2 89 mmHg (85-104) 06/20/17 04:29 ABG O2 Saturation 95 % (95-98) 06/20/17 04:29 Consult Discharge Plan - Plan Referrals: [facility] [Primary Care Provider] -
[2017-06-20] MEDS ORDERED: Insulin DETEMIR 100 UNIT/ML X5UNITS SQ SCH (21:00)
[2017-06-20] MEDS ORDERED: Albuterol 2.5 MG/3 ML NEBULIZER IH PRN (21:01)
[2017-06-21] MEDS ORDERED: *HR* Metoprolol 5 MG/5 ML VIAL IVP ONE (00:26)
[2017-06-21] MEDS: Ipratropium Neb 0.5 MG NEBULIZER IH SCH ×3 (03:46→11:05)
[2017-06-21] MEDS: Levalbuterol Neb 1.25 MG/3 ML IH SCH ×3 (03:46→11:05)
[2017-06-21 04:02] LABS: ABG Base Excess 13 mEq/L (-2 to 3); ABG HCO3 42 mEq/L (21-27); ABG Oxygen Saturation 87 % (95-98); ABG PCO2 92 mmHg (35-45); ABG PH 7.27 pH Units (7.32-7.45); ABG PO2 65 mmHg (85-104); ABG TCO2 45 mEq/L (20-26); Blood Gas Modality VC; Blood Gas PEEP 5 cm H2O; Blood Gas Respiration Rate 20; Blood Gas VT 400 cc
[2017-06-21] MEDS: Insulin LISPRO 300 UNITS/3 ML VIAL SQ SCH ×3 (04:25→08:48)
[2017-06-21] MEDS: Lacri-Lube 3.5 GM TUBE BOTH EYES SCH ×4 (04:26→11:46)
[2017-06-21 04:42] LABS: Hemoglobin 8.6 g/dL (11.5-15.4); Mean Corpuscular HGB Conc 29.7 g/dL (31.6-35.5); Mean Corpuscular Hemoglobin 31.9 pg (28.0-33.3); Mean Corpuscular Volume 107.4 fL (83.0-100.0); Mean Platelet Volume 10.6 fL (9.4-12.4); Platelet Count 208 K/mcL (140-400); Red Cell Distribution Width 13.8 % (11.5-14.5)
[2017-06-21 05:08] LABS: BUN/Creatinine Ratio 42 (6-26); Blood Urea Nitrogen 22 mg/dL (8-23); Calcium 8.9 mg/dL (8.6-10.3); Carbon Dioxide 39 mEq/L (23-29); Chloride 99 mEq/L (98-107); Glucose 256 mg/dL (70-105); Magnesium 2.1 mg/dL (1.6-2.6); Osmolality,Calculated 310 (280-300); Potassium 5.2 mEq/L (3.5-5.1); Sodium 144 mEq/L (136-145); eGFR For African Americans > 60 (> 60); eGFR For Non-African Americans > 60 (> 60)
[2017-06-21 05:37] LABS: Lymphocytes # 1.1 K/mcL (0.6-4.6); Macrocytosis Present (Not Present); Monocytes # 0.3 K/mcL (0.0-1.3); Neutrophils # 6.6 K/mcL (1.6-8.9); Platelet Estimate Normal (Normal); Polychromasia 1+ (Not Present); Reactive Lymphocytes Present (Not Present)
[2017-06-21] MEDS: Pantoprazole 40 MG VIAL IVP SCH (05:52)
[2017-06-21] MEDS: *HR* Enoxaparin 40 MG/0.4 ML SYRINGE SQ SCH (05:53)
[2017-06-21] MEDS: Dexmedetomidine HCl 400 MCG/100 ML MLS IVC SCH (05:53)
--- NOTE | 2017-06-21 07:26 | Pulmonology Progress Note ---
<Varghese Johnson - Last Filed: 06/21/17 11:35> Date of Encounter: 06/21/17 Time of Encounter: 07:21 Assessment and Plan (1) Acute and chronic respiratory failure ([id number]) Current Visit: Yes Status: Acute Secondary to RSV pneumonia and COPD exacerbation On ventilator and sedated - switched back to propofol - easily arousable and follows commands Blood culture NGTD Pt continues to have periods of agitation and anxiety - will give Seroquel BID Antibiotics: Azithromycin - completed 3 doses. Ceftriaxone day 6/7 Nutrition consult for enteral feedings - BG has been consistently in 200's - will increase Levemir to 10 U HS Ipatropium q4h and levalbuterol q4h Powerglide for IV access Patient is now DNR-CCA: per Palliative discussion with family they do not think she would want to be on the ventilator long-term or have a tracheostomy. Now waiting for more family to get into town before further decisions are made, but may consider compassionately extubating within the next few days. Will continue respiratory support and treatment until further family decisions are made Failed SBT this morning at 0900 - continues to have more labored breathing since that time with decreased breath sounds - vent settings changed to PEEP 8, FiO2 60% Qualifiers: Respiratory failure complication: hypoxia and hypercapnia Qualified Code(s) : J96.21 - Acute and chronic respiratory failure with hypoxia; J96.22 - Acute and chronic respiratory failure with hypercapnia; J96.22 - Acute and chronic respiratory failure with hypercapnia; J96.22 - Acute and chronic respiratory failure with hypercapnia (2) PNA (pneumonia) Current Visit: Yes Status: Suspected Secondary to RSV - possible bacterial as well Continue Ceftriaxone day 67 - completed 3 days of Azithromycin Legionella antigen negative Qualifiers: Pneumonia type: due to unspecified organism Laterality: left Lung location: lower lobe of lung Qualified Code(s): J18.1 - Lobar pneumonia, unspecified organism (3) Hypotension Current Visit: Yes Status: Acute Likely related to sedation, low intravascular volume, and infection Fluid bolus today BP has been more labile over the past 24 hours: 97-174/62-93 - will continue to monitor and treat if continuing to increase Qualifiers: Hypotension type: unspecified hypotension type Qualified Code(s): I95.9 - Hypotension, unspecified (4) CHF (congestive heart failure) Current Visit: Yes Status: Acute Chronic CHF with no evidence of acute exacerbation - will monitor fluids closely Qualifiers: Congestive heart failure type: unspecified Congestive heart failure chronicity: chronic Qualified Code(s): I50.9 - Heart failure, unspecified (5) COPD exacerbation Current Visit: Yes Status: Acute Continue bronchodilators. Steroids q8h (6) Anxiety Current Visit: Yes Status: Chronic History of anxiety and agitated during hospitalization Will use Seroquel for sedation (7) Ulcer of sacral region, stage 1 Current Visit: Yes Status: Chronic Stage 1 pressure ulcer on right buttock - present since admission (8) DVT prophylaxis Current Visit: Yes Status: Acute Subjective Principal diagnosis: Respiratory Failure Interval history: Pt seen and examined. Easily arousable and follows commands. She continues to have periods of increased anxiety. BP has been more elevated last night. Objective PUL Vital signs: Last Vital Signs Temp 97.7 F 06/21/17 05:00 Pulse 91 06/21/17 06:00 Resp 20 06/21/17 06:00 BP 135/66 06/21/17 06:00 Pulse Ox 95 06/21/17 06:00 General appearance: no acute distress Eyes: nonicteric ENT: oropharynx moist Auscultation: bilateral: diminished breath sounds, wheezes Cardiovascular: regular rate and rhythm Gastrointestinal: normoactive bowel sounds Extremities: no cyanosis, no edema unable to assess due to mental status Ventilator Settings Ventilator Settings: Ventilator Settings, Last 8 Hours Ventilator Mode VC+ Ventilator Mode VC+ Ventilator Mode VC+ Ventilator Mode VC+ Ventilator Mode VC+ Ventilator Mode VC+ Ventilator Mode VC+ Ventilator Mode VC+ Ventilator Mode VC+ Ventilator Mode VC+ Ventilator Mode VC+ Ventilator Mode VC+ Ventilator Tidal Volume 400 Setting Ventilator Tidal Volume 400 Setting Ventilator Tidal Volume 400 Setting Ventilator Tidal Volume 400 Setting Ventilator Tidal Volume 400 Setting Ventilator Tidal Volume 400 Setting Ventilator Tidal Volume 400 Setting Ventilator Tidal Volume 400 Setting Ventilator Tidal Volume 400 Setting Ventilator Tidal Volume 400 Setting Ventilator Tidal Volume 400 Setting Ventilator Tidal Volume 400 Setting Ventilator Respiratory Rate 20 Setting Ventilator Respiratory Rate 20 Setting Ventilator Respiratory Rate 20 Setting Ventilator Respiratory Rate 20 Setting Ventilator Respiratory Rate 20 Setting Ventilator Respiratory Rate 20 Setting Ventilator Respiratory Rate 20 Setting Ventilator Respiratory Rate 20 Setting Ventilator Respiratory Rate 20 Setting Ventilator Respiratory Rate 20 Setting Ventilator Respiratory Rate 20 Setting Ventilator Respiratory Rate 28 Setting Actual Respiratory Rate 20 Actual Respiratory Rate 23 Actual Respiratory Rate 20 Actual Respiratory Rate 25 Actual Respiratory Rate 21 Actual Respiratory Rate 23 Actual Respiratory Rate 22 Actual Respiratory Rate 20 Actual Respiratory Rate 20 Actual Respiratory Rate 25 Actual Respiratory Rate 27 Positive End Expiratory 5 Pressure Positive End Expiratory 5 Pressure Positive End Expiratory 5 Pressure Positive End Expiratory 5 Pressure Positive End Expiratory 5 Pressure Positive End Expiratory 5 Pressure Positive End Expiratory 5 Pressure Positive End Expiratory 5 Pressure Positive End Expiratory 5 Pressure Positive End Expiratory 5 Pressure Positive End Expiratory 5 Pressure Positive End Expiratory 5 Pressure Peak Inspiratory Airway 38 Pressure Peak Inspiratory Airway 32 Pressure Peak Inspiratory Airway 40 Pressure Peak Inspiratory Airway 40 Pressure Peak Inspiratory Airway 35 Pressure Peak Inspiratory Airway 40 Pressure Peak Inspiratory Airway 26 Pressure Peak Inspiratory Airway 42 Pressure Peak Inspiratory Airway 41 Pressure Peak Inspiratory Airway 31 Pressure Peak Inspiratory Airway 27 Pressure Results - Laboratory Findings CBC and BMP: 06/21/17 04:24 06/21/17 04:24 ABG ABG pH 7.27 pH Units (7.32-7.45) L 06/21/17 03:55 ABG pCO2 92 mmHg (35-45) H* 06/21/17 03:55 ABG pO2 65 mmHg (85-104) L 06/21/17 03:55 ABG O2 Saturation 87 % (95-98) L 06/21/17 03:55 Abnormal lab findings: Abnormal lab results RBC 2.70 M/mcL (3.82-4.97) L 06/21/17 04:24 Hgb 8.6 g/dL (11.5-15.4) L 06/21/17 04:24 Hct 29.0 % (35.3-44.9) L 06/21/17 04:24 MCV 107.4 fL (83.0-100.0) H 06/21/17 04:24 MCHC 29.7 g/dL (31.6-35.5) L 06/21/17 04:24 Band Neutrophils % 6.0 % (0-4) H 06/21/17 04:24 Nucleated RBCs/100 WBC 3.0 /100 WBC (0) H 06/21/17 04:24 Reactive Lymphocytes Present (Not Present) A 06/21/17 04:24 Polychromasia 1+ (Not Present) A 06/21/17 04:24 Macrocytosis Present (Not Present) A 06/21/17 04:24 ABG pH 7.27 pH Units (7.32-7.45) L 06/21/17 03:55 ABG pCO2 92 mmHg (35-45) H* 06/21/17 03:55 ABG pO2 65 mmHg (85-104) L 06/21/17 03:55 ABG HCO3 42 mEq/L (21-27) H 06/21/17 03:55 ABG Total CO2 45 mEq/L (20-26) H 06/21/17 03:55 ABG O2 Saturation 87 % (95-98) L 06/21/17 03:55 ABG Base Excess 13 mEq/L (-2 to 3) H 06/21/17 03:55 Potassium 5.2 mEq/L (3.5-5.1) H 06/21/17 04:24 Carbon Dioxide 39 mEq/L (23-29) H 06/21/17 04:24 Creatinine 0.53 mg/dL (0.60-1.20) L 06/21/17 04:24 BUN/Creatinine Ratio 42 (6-26) H 06/21/17 04:24 Glucose 256 mg/dL (70-105) H 06/21/17 04:24 POC Glucose 253 (58-89) H 06/21/17 04:17 Calculated Osmolality 310 (280-300) H 06/21/17 04:24 B-Natriuretic Peptide 298 pg/mL (Less than 100) H 06/16/17 04:05 Urine Protein 30 mg/dL (Neg-Trace) H 06/16/17 04:39 Urine Microscopic RBC 3-5 per hpf (0-3) H 06/16/17 04:39 Ur Squamous Epith Cells Many per lpf (None-Few) H 06/16/17 04:39 RSV (PCR) DETECTED (Not Detect) A 06/16/17 08:15 - Clinical Findings Intake & Output: Intake & Output 06/20/17 06/20/17 06/21/17 15:59 23:59 07:59 Intake Total 1426 / 1426 520 / 520 468 / 468 Output Total 400 / 400 350 / 350 250 / 250 Balance 1026 / 1026 170 / 170 218 / 218 Consult Discharge Plan - Plan [facility]errals: [facility] [Primary Care Provider[facility] - <Lexis Darling - Last Filed: 06/21/17 20:04> Date of Encounter: 06/21/17 Objective PUL Vital signs: Last Vital Signs Temp 98.4 F 06/21/17 11:30 Pulse 130 06/21/17 13:15 Resp 20 06/21/17 13:15 BP 112/64 06/21/17 13:15 Pulse Ox 96 06/21/17 13:15 Ventilator Settings Ventilator Settings: Ventilator Settings, Last 8 Hours Ventilator Mode VC+ Ventilator Tidal Volume 400 Setting Ventilator Respiratory Rate 20 Setting Actual Respiratory Rate 20 Positive End Expiratory 5 Pressure Peak Inspiratory Airway 45 Pressure Results - Laboratory Findings CBC and BMP: 06/21/17 04:24 06/21/17 04:24 ABG ABG pH 7.27 pH Units (7.32-7.45) L 06/21/17 03:55 ABG pCO2 92 mmHg (35-45) H* 06/21/17 03:55 ABG pO2 65 mmHg (85-104) L 06/21/17 03:55 ABG O2 Saturation 87 % (95-98) L 06/21/17 03:55 Abnormal lab findings: Abnormal lab results RBC 2.70 M/mcL (3.82-4.97) L 06/21/17 04:24 Hgb 8.6 g/dL (11.5-15.4) L 06/21/17 04:24 Hct 29.0 % (35.3-44.9) L 06/21/17 04:24 MCV 107.4 fL (83.0-100.0) H 06/21/17 04:24 MCHC 29.7 g/dL (31.6-35.5) L 06/21/17 04:24 Band Neutrophils % 6.0 % (0-4) H 06/21/17 04:24 Nucleated RBCs/100 WBC 3.0 /100 WBC (0) H 06/21/17 04:24 Reactive Lymphocytes Present (Not Present) A 06/21/17 04:24 Polychromasia 1+ (Not Present) A 06/21/17 04:24 Macrocytosis Present (Not Present) A 06/21/17 04:24 ABG pH 7.27 pH Units (7.32-7.45) L 06/21/17 03:55 ABG pCO2 92 mmHg (35-45) H* 06/21/17 03:55 ABG pO2 65 mmHg (85-104) L 06/21/17 03:55 ABG HCO3 42 mEq/L (21-27) H 06/21/17 03:55 ABG Total CO2 45 mEq/L (20-26) H 06/21/17 03:55 ABG O2 Saturation 87 % (95-98) L 06/21/17 03:55 ABG Base Excess 13 mEq/L (-2 to 3) H 06/21/17 03:55 Potassium 5.2 mEq/L (3.5-5.1) H 06/21/17 04:24 Carbon Dioxide 39 mEq/L (23-29) H 06/21/17 04:24 Creatinine 0.53 mg/dL (0.60-1.20) L 06/21/17 04:24 BUN/Creatinine Ratio 42 (6-26) H 06/21/17 04:24 Glucose 256 mg/dL (70-105) H 06/21/17 04:24 POC Glucose 169 (58-89) H 06/21/17 12:43 Calculated Osmolality 310 (280-300) H 06/21/17 04:24 B-Natriuretic Peptide 298 pg/mL (Less than 100) H 06/16/17 04:05 Urine Protein 30 mg/dL (Neg-Trace) H 06/16/17 04:39 Urine Microscopic RBC 3-5 per hpf (0-3) H 06/16/17 04:39 Ur Squamous Epith Cells Many per lpf (None-Few) H 06/16/17 04:39 RSV (PCR) DETECTED (Not Detect) A 06/16/17 08:15 - Clinical Findings Intake & Output: Intake & Output 06/21/17 06/21/17 06/21/17 07:59 15:59 23:59 Intake Total 468 / 468 508 / 508 Output Total 425 / 425 125 / 125 Balance 43 / 43 383 / 383 - Attending Attestation I saw and evaluated this patient and my medical decision-making was reviewed with the Resident Physician. I agree with the documented findings, disposition and treatment plan as described except to the extent set forth below. We independently had [id number] contact with the patient Patient seen and examined at bedside Labs, radiology, chart personally reviewed. 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 Pulm:Acute on chronic respiratory failure secondary to COPD Exacerbation , Viral pneumonia complicated by fluid overload to continue diuresis as tolerated . To complete the course of Azithromycin , No growth in cultures till date . Tidal volume and RR was adjusted changed the bronchodilator regimen as patient has some increased wheezing not moving the tidal volume much . The V/Q mismatch is slowly improving not ready for SBT Viral exacerbation of COPD might have a prolonged course . 2/ tried to do a SBT went into severe respiratory distress with bronchospasm Cards:Hemodynamically stable FEN-GI:Tube feeds Renal:Labs reviewed and UOP ID: Cultures are negative till date Heme/Onc:Labs reviewed Endo: Glucose Monitored Integ/MSK: Skin Care per routine ICU Nursing Protocol to prevent ulcers. Lines: All lines examined without evidence of infection : Dispo: Critically ill CODE: Spoke with Brother and Sister they wanted to keep her comfortable will change the code status to CC compassionate extubation today afternoon.
[2017-06-21] MEDS: cefTRIAXone 2,000 MG in Water for inj. (sterile) 20 ML IVP SCH (08:47)
[2017-06-21] MEDS: Chlorhexidine Rinse 15 ML MOUTHWASH MM SCH (08:48)
[2017-06-21] MEDS: MethylPREDNISolone 40 MG/ML VIAL IVP SCH (08:48)
--- NOTE | 2017-06-21 09:30 | Palliative Progress Note ---
Date of Encounter: 06/21/17 Time of Encounter: 09:30 - Assessment and plan (1) Dyspnea Current Visit: Yes Status: Acute Qualifiers: Dyspnea type: unspecified Qualified Code(s): R06.00 - Dyspnea, unspecified (2) Goals of care, counseling/discussion Current Visit: Yes Status: Acute (3) Acute respiratory failure with hypercapnia Current Visit: Yes Status: Acute (4) COPD exacerbation Current Visit: Yes Status: Acute - Time Spent With Patient Total time spent is greater than 50% in coordination of care (as documented) at patient's floor/unit and/or counseling patient: - Subjective Interval history: Patient remains sedated on ventilator. - Constitutional Vitals: Abnormal lab results RBC 2.70 M/mcL (3.82-4.97) L 06/21/17 04:24 Hgb 8.6 g/dL (11.5-15.4) L 06/21/17 04:24 Hct 29.0 % (35.3-44.9) L 06/21/17 04:24 MCV 107.4 fL (83.0-100.0) H 06/21/17 04:24 MCHC 29.7 g/dL (31.6-35.5) L 06/21/17 04:24 Band Neutrophils % 6.0 % (0-4) H 06/21/17 04:24 Nucleated RBCs/100 WBC 3.0 /100 WBC (0) H 06/21/17 04:24 Reactive Lymphocytes Present (Not Present) A 06/21/17 04:24 Polychromasia 1+ (Not Present) A 06/21/17 04:24 Macrocytosis Present (Not Present) A 06/21/17 04:24 ABG pH 7.27 pH Units (7.32-7.45) L 06/21/17 03:55 ABG pCO2 92 mmHg (35-45) H* 06/21/17 03:55 ABG pO2 65 mmHg (85-104) L 06/21/17 03:55 ABG HCO3 42 mEq/L (21-27) H 06/21/17 03:55 ABG Total CO2 45 mEq/L (20-26) H 06/21/17 03:55 ABG O2 Saturation 87 % (95-98) L 06/21/17 03:55 ABG Base Excess 13 mEq/L (-2 to 3) H 06/21/17 03:55 Potassium 5.2 mEq/L (3.5-5.1) H 06/21/17 04:24 Carbon Dioxide 39 mEq/L (23-29) H 06/21/17 04:24 Creatinine 0.53 mg/dL (0.60-1.20) L 06/21/17 04:24 BUN/Creatinine Ratio 42 (6-26) H 06/21/17 04:24 Glucose 256 mg/dL (70-105) H 06/21/17 04:24 POC Glucose 272 (58-89) H 06/21/17 08:01 Calculated Osmolality 310 (280-300) H 06/21/17 04:24 B-Natriuretic Peptide 298 pg/mL (Less than 100) H 06/16/17 04:05 Urine Protein 30 mg/dL (Neg-Trace) H 06/16/17 04:39 Urine Microscopic RBC 3-5 per hpf (0-3) H 06/16/17 04:39 Ur Squamous Epith Cells Many per lpf (None-Few) H 06/16/17 04:39 RSV (PCR) DETECTED (Not Detect) A 06/16/17 08:15 Palliative Quality Palliative Quality: Screen for Code Status: Yes, Screen for Goals of Care: Yes, Screen for Pain: Yes, If Pain Regimen Started, Initiate Bowel Regimen: NA, Screen for Nausea/Vomitting: Yes Code Status: 06/20/17 14:48 DNR [Resuscitation Status: Active] [RES] Routine Comment: Resuscitation Status: DNR-Comfort Care-Arrest - Labs CBC & Chem 7: 06/21/17 04:24 06/21/17 04:24 Labs: Laboratory Results - last 24 hr 06/20/17 06/20/17 06/20/17 12:02 16:06 19:49 WBC RBC Hgb Hct MCV MCH MCHC RDW Plt Count MPV Seg Neutrophils % Band Neutrophils % Lymphocytes % Monocytes % Neutrophils # Lymphocytes # Monocytes # Nucleated RBCs/100 WBC Reactive Lymphocytes Platelet Estimate Polychromasia Macrocytosis Sample Site ABG pH ABG pCO2 ABG pO2 ABG HCO3 ABG Total CO2 ABG O2 Saturation ABG Base Excess Sina Test Respiration Rate O2 Delivery Device Blood Gas Modality Inspired O2 Tidal Volume PEEP Sodium Potassium Chloride Carbon Dioxide BUN Creatinine Est GFR ( Amer) Est GFR (Non-Af Amer) BUN/Creatinine Ratio Glucose POC Glucose 211 H 213 H 236 H Calculated Osmolality Calcium Magnesium 06/20/17 06/21/17 06/21/17 23:47 03:55 04:17 WBC RBC Hgb Hct MCV MCH MCHC RDW Plt Count MPV Seg Neutrophils % Band Neutrophils % Lymphocytes % Monocytes % Neutrophils # Lymphocytes # Monocytes # Nucleated RBCs/100 WBC Reactive Lymphocytes Platelet Estimate Polychromasia Macrocytosis Sample Site R Radial ABG pH 7.27 L ABG pCO2 92 H* ABG pO2 65 L ABG HCO3 42 H ABG Total CO2 45 H ABG O2 Saturation 87 L ABG Base Excess 13 H Sina Test N/A Respiration Rate 20 O2 Delivery Device Adult Vent Blood Gas Modality VC Inspired O2 45.0 Tidal Volume 400 PEEP 5 Sodium Potassium Chloride Carbon Dioxide BUN Creatinine Est GFR ( Amer) Est GFR (Non-Af Amer) BUN/Creatinine Ratio Glucose POC Glucose 175 H 253 H Calculated Osmolality Calcium Magnesium 06/21/17 06/21/17 06/21/17 04:24 04:24 08:01 WBC 8.0 RBC 2.70 L Hgb 8.6 L Hct 29.0 L MCV 107.4 H MCH 31.9 MCHC 29.7 L RDW 13.8 Plt Count 208 MPV 10.6 Seg Neutrophils % 76.0 Band Neutrophils % 6.0 H Lymphocytes % 14.0 Monocytes % 4.0 Neutrophils # 6.6 Lymphocytes # 1.1 Monocytes # 0.3 Nucleated RBCs/100 WBC 3.0 H Reactive Lymphocytes Present A Platelet Estimate Normal Polychromasia 1+ A Macrocytosis Present A Sample Site ABG pH ABG pCO2 ABG pO2 ABG HCO3 ABG Total CO2 ABG O2 Saturation ABG Base Excess Sina Test Respiration Rate O2 Delivery Device Blood Gas Modality Inspired O2 Tidal Volume PEEP Sodium 144 Potassium 5.2 H Chloride 99 Carbon Dioxide 39 H BUN 22 Creatinine 0.53 L Est GFR ( Amer) > 60 Est GFR (Non-Af Amer) > 60 BUN/Creatinine Ratio 42 H Glucose 256 H POC Glucose 272 H Calculated Osmolality 310 H Calcium 8.9 Magnesium 2.1 - ABG Interpretation ABG results: ABG ABG pH 7.27 pH Units (7.32-7.45) L 06/21/17 03:55 ABG pCO2 92 mmHg (35-45) H* 06/21/17 03:55 ABG pO2 65 mmHg (85-104) L 06/21/17 03:55 ABG O2 Saturation 87 % (95-98) L 06/21/17 03:55 Consult Discharge Plan - Plan [facility]: [facility] [Primary Care Provider] -
[2017-06-21] MEDS ORDERED: methylPREDNISolone 125 MG/2 ML VIAL IM ONE (11:28)
[2017-06-21] MEDS ORDERED: Ipratropium/Albuterol Neb 3 ML IH ONE (11:31)
[2017-06-21] MEDS ORDERED: Ipratropium/Albuterol Neb 3 ML ONE (11:39)
[2017-06-21 12:21] VITALS: BP 112/64
[2017-06-21] MEDS ORDERED: *HR* LORazepam 2 MG/ML VIAL IVP PRN ×2 (13:08→13:53)
[2017-06-21] MEDS ORDERED: FentaNYL (PF) 1,000 MCG in 0.9 % Sodium Chloride 80 ML IVC SCH ×2 (13:11→13:25)
[2017-06-21] MEDS ORDERED: *HR* LORazepam 2 MG/ML VIAL ONE (13:21)
[2017-06-21] MEDS: FentaNYL (PF) 1,000 MCG in 0.9 % Sodium Chloride 80 ML IVC SCH (13:23)
[2017-06-21] MEDS ORDERED: Atropine Sulfate 1% 40 DROP/2 ML BOTTLE SL PRN (13:52)
[2017-06-21] MEDS ORDERED: Scopolamine Patch 1.5 MG PATCH.TD72 TD SCH (15:00)
[2017-06-21] MEDS ORDERED: *HR* FentaNYL (PF) 100 MCG/2 ML VIAL IVP PRN (16:00)
--- NOTE | 2017-06-21 18:59 | Death Note ---
<Doug Lewis - Last Filed: 06/21/17 20:17> Discharge Sum: Summary - Date and Time Date of admission: 06/16/17 06:33 Date of : 06/21/17 Time of : 18:51 - Summary Details: Katty Smith is a 62-year-old female with a PMH of anemia, chronic systolic CHF , anxiety, low back pain, GERD, depression, mood disorder, HTN, HLD and severe COPD who presented to [facility] with chief complaint of SOB. Patient is a resident at the [facility]. In the ED, initial workup demonstrated leukocytosis of 13, elevated BNP of 298, and initial ABG demonstrating pH 7.27, PCO2 93, PO2 111 and HCO3 43. CXR demonstrated chronic lung changes in the LLL vs infectious process. Blood CX were sent and flu swab was negative. Patient was subsequently intubated and started on ventilator support. She was given 1 dose of vancomycin and Zosyn in the ER. She was admitted to the ICU for acute respiratory failure secondary to COPD exacerbation and suspected PNA and thus, pulmonary/critical care team was consulted. Repeat ABG with pH of 7.37, PCO2 68 , PO2 204 and HCO3 39. Ventilator settings were set as follows: 14, 400, 60 and 5. Patient was started on Precedex and was bolused fentanyl as needed. The admitting team had started bronchodilators and steroids. Additional coverage were added with ceftriaxone and azithromycin as well as a respiratory infection panel that was positive for RSV. Patient was also hypotensive on arrival; minimally responsive to fluids. Palliative care was consulted due to patients poor condition. Patients code status was initially DNR-CCA; family said they did not think she would want to be on the ventilator long-term or have a tracheostomy. Code status was changed to DNR-CC. On 06/21/17, patient was extubated and care was withdrawn at the request of the family. Patient was kept on fentanyl drip. At 18:51, patient stopped breathing. Patient was examined at bedside; found to have no pulse, no respirations, no pupillary response, and no heart sounds. Family was at bedside during pronouncement. - Additional Data Confirmation of as documented by pronouncing clinician: no pulse, no respirations, no heart sounds, pupils fixed and dilated Family: at bedside Attending physician: Kolby Beltrán MD Was code activated?: No Discharge Sum: Diag - PCOD Probable Cause of : Pneumonia Discharge Sum: Prov - Provider [facility] care physician: [facility] Consults: 06/18/17 10:59 dietary consult [Consult to Nutrition] [CONS] Stat Comment: Consulting Provider: NUTRITION Reason for Dietary Consult: Tube Feed Start & Manage 06/18/17 11:00 Consult to Palliative Care [CONS] Stat Comment: Consulting Provider: Palliative Care Obdulia Reason for Consult: Goals of care Time Notified: 11:00 Call Completed: Yes Pronouncing clinician: Doug Lewis <Lexis Darling - Last Filed: 06/22/17 10:49> Discharge Sum: Summary - Date and Time Date of admission: 06/16/17 06:33 - Additional Data Attending physician: Kolby Beltrán MD Discharge Sum: Prov - Provider Primary care physician: [facility] Consults: 06/18/17 10:59 dietary consult [Consult to Nutrition] [CONS] Stat Comment: Consulting Provider: NUTRITION Reason for Dietary Consult: Tube Feed Start & Manage 06/18/17 11:00 Consult to Palliative Care [CONS] Stat Comment: Consulting Provider: Palliative Care Obdulia Reason for Consult: Goals of care Time Notified: 11:00 Call Completed: Yes - Attending Attestation I agree with the documentation about the hospital course documented in Discharge summary.
== END 2017-06-21 18:51 | disposition expired | DRG 208 ==
LOC: EMEROO 03:57 → ICNU 06:33
PROVIDERS: ADMIT Internal Medicine Hematology & Oncology; ATTEND Internal Medicine